=== PATIENT | female | born 1955 | race Caucasian/White ===

== ENCOUNTER 2018-06-18 09:39 | Outpatient (CLI) | payer OTHER ==
--- NOTE | 2018-06-18 12:40 | ULT ---
HEPATIC ULTRASOUND: HISTORY: Cirrhosis. TECHNIQUE: Multiplanar moore-scale and color Doppler images were obtained in a right upper quadrant abdominal ult rasound. Spectral analysis of the Doppler wave-forms of the hepatic and splenic vasculature was perf ormed. FINDINGS: The liver is increased in echogenicity with a slightly nodular contour, consistent with cirrhosis. T he gallbladder has been removed. The common bile duct is slightly enlarged, measuring 11 mm. No int rahepatic biliary dilatation is seen. Normal directional flow is seen within the hepatic and splenic vasculature, which also demonstrate no rmal wave-forms. The spleen is normal in echogenicity, without focal lesions, and measures 9.1 cm in length. IMPRESSION: 1. Findings consistent with cirrhosis. No focal liver lesions are seen. 2. Enlargement of the common bile duct is likely a reservoir effect from prior cholecystectomy. POS: [facility]
== END 2018-06-18 09:40 | disposition home or self-care (01) ==
LOC: ULT 09:39
PROVIDERS: ATTEND Internal Medicine Gastroenterology
DX: K74.3 Primary biliary cirrhosis (principal); K62.5 Hemorrhage of anus and rectum; R11.2 Nausea with vomiting, unspecified; K83.8 Other specified diseases of biliary tract; Z90.49 Acquired absence of other specified parts of digestive tract
CPT/HCPCS: 76705

== ENCOUNTER 2019-09-30 12:18 | Outpatient (CLI) | payer OTHER ==
--- NOTE | 2019-09-30 14:02 | RAD ---
SKULL FOUR VIEWS: HISTORY: The patient felt a knot in the back of his head. FINDINGS: The cranial vault is intact. The area of concern was marked with a radiopaque marker. This shows no s igns of any bony lesion or soft tissue lesion in this area. IMPRESSION: Unremarkable skull series. POS: [facility]
[2019-09-30 14:08] LABS: Mean Corpuscular HGB CONC 33.8 g/dL (32.0-36.0); Mean Corpuscular Hemoglobin 30.5 pg (27.0-31.0); Mean Corpuscular Volume 90.2 fL (78.0-98.0); Platelet Count 429 thou/uL (130-400); RBC Distribution Width 12.9 % (11.5-14.5); Red Blood Cell (RBC) Count 3.92 mill/uL (4.20-5.40); White Blood Cell (WBC) Count 14.4 thou/uL (4.8-10.8)
[2019-09-30 14:20] LABS: Anion Gap 13 mmol/L (10-20); BUN (Urea Nitrogen) 12 mg/dL (9.8-20.1); Calc. Creatinine Clearance 0 mL/min (70-130); Calcium 9.8 mg/dL (7.8-10.44); Carbon Dioxide 26 mmol/L (23-31); Chloride 103 mmol/L (98-107); Estimated GFR-MDRD 62; Glucose 86 mg/dL (80-115); Potassium 4.6 mmol/L (3.5-5.1); Sodium 137 mmol/L (136-145)
[2019-09-30 14:39] LABS: Syphilis Antibody Nonreactive (Nonreactive); Syphilis Antibody Index 0.08 S/CO (<1.00 Non-Reactive)
== END 2019-09-30 12:19 | disposition home or self-care (01) ==
LOC: SCSRAD 12:18
PROVIDERS: ATTEND Psychiatry & Neurology Neurology
DX: R51 Headache (principal)
CPT/HCPCS: 36415; 70260; 80048; 85027; 85652; 86780

== ENCOUNTER 2019-12-12 07:20 | Outpatient (CLI) | payer OTHER ==
--- NOTE | 2019-12-12 08:34 | ULT ---
HEPATIC ULTRASOUND WITH CRANDALL SCALE AND COLOR FLOW AND SPECTRAL DOPPLER IMAGING: Date: 12/12/2019 HISTORY: Cirrhosis of the liver. FINDINGS: The liver demonstrates coarse echogenicity without focal mass or intrahepatic ductal dilatation. The spleen measures 9.6 cm in length and is normal. The patient is post cholecystectomy. The common duct measures 1.0 cm in diameter and is stable compared to the previous study of 06/18/2018, likely due to reservoir effect. The visualized portions of the pancreas are unremarkable. No free fluid is seen. T here is normal flow and spectral waveforms in the hepatic, portal, and splenic vasculature. IMPRESSION: 1. Findings are consistent with hepatocellular disease. 2. Status post cholecystectomy. POS: [facility]
== END 2019-12-12 07:21 | disposition home or self-care (01) ==
LOC: BICULT 07:20
PROVIDERS: ATTEND Physician Assistant Medical
DX: K74.3 Primary biliary cirrhosis (principal); R19.7 Diarrhea, unspecified; Z90.49 Acquired absence of other specified parts of digestive tract
CPT/HCPCS: 76705

== ENCOUNTER 2019-12-25 18:23 | Inpatient (IN) | payer OTHER ==
[2019-12-25 18:59] LABS: Mean Corpuscular HGB CONC 33.1 g/dL (32.0-36.0); Mean Corpuscular Hemoglobin 29.7 pg (27.0-31.0); Mean Corpuscular Volume 89.9 fL (78.0-98.0); Mean Platelet Volume 6.5 fL (7.4-10.4); Platelet Count 547 thou/uL (130-400); RBC Distribution Width 13.1 % (11.5-14.5); Red Blood Cell (RBC) Count 3.03 mill/uL (4.20-5.40); White Blood Cell (WBC) Count 30.4 thou/uL (4.8-10.8)
[2019-12-25 19:17] LABS: ALT (SGPT) 24 U/L (8-55); AST (SGOT) 25 U/L (5-34); Albumin 3.1 g/dL (3.4-4.8); Alkaline Phosphatase 258 U/L (40-110); Anion Gap 13 mmol/L (10-20); BUN (Urea Nitrogen) 7 mg/dL (9.8-20.1); Bilirubin, Total 0.6 mg/dL (0.2-1.2); Calc. Creatinine Clearance 0 mL/min (70-130); Carbon Dioxide 24 mmol/L (23-31); Chloride 103 mmol/L (98-107); Estimated GFR-MDRD Greater than 90; Globulin 4.2 g/dL (2.4-3.5); Glucose 108 mg/dL (80-115); Protein, Total 7.3 g/dL (6.0-8.3); Sodium 136 mmol/L (136-145)
[2019-12-25 19:20] LABS: Band 24 % (5-11); Lymphocytes 6 % (21-51); MDiff Complete? YES; Monocytes 6 % (0-10); Neutrophil 64 % (42-75); Platelet Morphology Comment Appears Increased; Polychromasia MODERATE = 3-4 cells (100X) (0-2/hpf)
[2019-12-25] MEDS ORDERED: Clindamycin/D5W 900 mg/50 ml Premix Bag ONE (19:23)
[2019-12-25] MEDS ORDERED: Acetaminophen 325 MG TAB ONE (19:23)
[2019-12-25] MEDS ORDERED: Cefepime 2 GM VIAL ONE (19:23)
[2019-12-25] MEDS ORDERED: Morphine 4 MG/ML VIAL ONE (19:23)
[2019-12-25 19:24] LABS: Bacteria/HPF None Seen HPF (None Seen); Bilirubin Negative (Negative); Blood, Urine Negative (Negative); Clarity Clear (Clear); Glucose, Urine (Dipstick) Normal (Negative); Leukocyte Negative Leu/uL (Negative); Nitrite Negative (Negative); Protein, Urine (Dipstick) 30 mg/dL (Neg-Trace); Squamous Epithelial 0-3 HPF (0-3)
[2019-12-25 19:25] LABS: RBC/HPF 0-3 HPF (0-3)
[2019-12-25] MEDS ORDERED: Vancomycin 1.5 GRAM/300 ML BAG 1.5 GM in Premix Bag 1 BAG IVPB SCH (19:45)
--- NOTE | 2019-12-25 19:45 | RAD ---
PORTABLE CHEST: 12/25/19 HISTORY: Bilateral lower extremity swelling. Sepsis. Heart size within normal limits. There are atherosclerotic changes of the aorta. The lungs are clear of any infiltrative process. There is fullness in left hilum. IMPRESSION: No infiltrates, questionable fullness to left hilum. CT may be helpful. POS: [facility]
--- NOTE | 2019-12-25 21:25 | CT ---
CT PELVIS WITH CONTRAST: 12/25/19 HISTORY: Sepsis. Groin swelling. COMPARISON: CT abdomen and pelvis from 2017. FINDINGS: There is incomplete evaluation of the calcification along the anterior pole right renal collecting sy stem. The aortic contour is nonaneurysmal. Diverticular disease of the sigmoid colon. There is osseous metastatic disease involving the right sacrum at S1, S2 and even S3 with a pathologi c fracture through zone 1. There is also a mass in the soft tissue component and osseous component ri ght ilium of the SI joints. This involves both the medial and lateral cortex through the medullary ca vity. There is osseous metastasis of the left sacrum, S3, S4, and S5 with zone 3 pathologic fracture. There is a large bundle of necrotic left superficial inguinal lymph nodes of the collection measuring up to 8 cm in size. This appears to be small phlegmonous collection/hemorrhage from a lymph node sup erficial to this conglomeration of lymph nodes which in total measures 5 cm in transverse with an AP dimension of 2 cm and craniocaudal length of approximately 5.6 cm. There is abnormal right superficial inguinal lymph node at the short axis measurement of 2.1 cm. The obturator rings are intact. IMPRESSION: 1. Osseous metastatic disease with pathologic fractures as described. 2. Metastatic conglomerate of left superficial inguinal adenopathy with either hemorrhage from a partial rupture of a cortex of a lymph node versus phlegmonous collection/early abscess superficial to the lymph node mass. 3. Metastatic right superficial inguinal lymph nodes as described. 4. The ordering ER physician was notified of the findings via telephone at 8:50 p.m. POS: [facility]
[2019-12-25] MEDS ORDERED: Lorazepam 2 MG/ML VIAL ONE (22:38)
[2019-12-25] MEDS ORDERED: Lidocaine 1% w/Epinephrine 1:100K 20 ML VIAL ONE (22:44)
[2019-12-25] MEDS ORDERED: Sodium Chloride 0.9% 1,000 ML IV SCH (23:45)
[2019-12-25] MEDS ORDERED: Senokot S 8.6-50 MG TAB PO PRN (23:45)
[2019-12-25] MEDS ORDERED: Bisacodyl 5 MG TAB PO PRN (23:45)
[2019-12-26 00:26] LABS: Phosphorus 3.1 mg/dL (2.3-4.7)
[2019-12-26] MEDS ORDERED: ALPRAZolam 0.5 MG TAB PO SCH (00:45)
[2019-12-26] MEDS ORDERED: ALPRAZolam 0.25 MG TAB ONE (02:10)
[2019-12-26] MEDS ORDERED: cefTRIAXone\\ROCEPHIN 1 GM VIAL ONE (02:10)
[2019-12-26] MEDS ORDERED: Morphine 4 MG/ML VIAL ONE (02:10)
[2019-12-26] MEDS: Morphine 4 MG/ML VIAL SLOW IVP PRN ×5 (02:21→19:53)
[2019-12-26] MEDS: cefTRIAXone\\ROCEPHIN 1 GM in Sodium Chloride 0.9% 100 ML IVPB SCH (02:22)
[2019-12-26] MEDS ORDERED: Ondansetron PF 4 MG/2 ML Vial IVP PRN (06:24)
[2019-12-26] MEDS ORDERED: Ondansetron ODT 4 MG TAB PO PRN (06:25)
[2019-12-26] MEDS ORDERED: Morphine 10 MG/ML VIAL SLOW IVP PRN (06:25)
--- NOTE | 2019-12-26 06:38 | HP ---
CHIEF COMPLAINT: Left leg pain. HISTORY OF PRESENT ILLNESS: The patient is a very pleasant, unfortunate 64-year-old female, with past medical history of myasthenia gravis, who comes into the hospital with complaints of left groin pain going on for several months. The patient states that she has been having pain on her left groin area and has not been able to walk really well on her left leg. She states that she has been somehow managing, however, for the past few days. Her pain has gotten to the point that she cannot tolerate it any more, so she came into the ER for further evaluation. The patient denies any chest pain or shortness of breath. However, she has lost about 12 pounds unintentionally. She has been having night sweats for the past couple of days. PAST MEDICAL HISTORY: As of the following, she has a history of diabetes and she has a history of myasthenia gravis, hypertension, and liver cirrhosis, for which she sees Dr. Roger, chronic back pain and hip pain. PAST SURGICAL HISTORY: She has a right breast tumor biopsy, hysterectomy, and knee surgery. She has had a lymph node biopsy from her neck, which was benign. SOCIAL HISTORY: She denies any alcohol use. She smokes 5 cigarettes a day. Denies any drug use. She lives with her family. She is a full code. ALLERGIES: PENICILLIN WHEN SHE WAS 8 YEARS OLD AND LATEX GLOVE. CURRENT MEDICATIONS: She is currently on pyridostigmine. PHYSICAL EXAMINATION: VITAL SIGNS: In the ER, temperature of 100.6, pulse of 119, respiratory rate 21, oxygen saturation 99% on room air, and blood pressure 159/67. GENERAL: She is awake, alert, and oriented x3, appears in minimal distress. HEENT: I was able to palpate some nodes in her head. There were couple nodules in her head that were painful to touch. CARDIOVASCULAR: S1 and S2 present. No murmurs, rubs, or gallops. LUNGS: Clear to auscultation. No rhonchi or wheezes noted. ABDOMEN: Soft, obese. Bowel sounds are present x2. No pain upon palpation. EXTREMITIES: She does have pedal pulses present bilaterally. She does have significant lower extremity edema bilaterally and also some small blisters to her bilateral lower extremity. She also has a significant erythema to her left groin area that tracks down to around her left inner thigh. Neurovascular-mcgowan, she has good strength to her upper extremities. She has decreased strength to her left lower extremity. SKIN: As I mentioned, she has significant small blisters to bilateral lower extremity and also to her left groin. She has significant amount of erythema. LABORATORY RESULTS: As of the following; WBCs of 30.4, hemoglobin of 9.0, hematocrit of 27.3, and platelets of 547. She does have bands of 24. Chemistries; sodium of 136, potassium of 4.0, BUN of 7, and creatinine of 0.61. Her alkaline phosphatase is 258. IMAGING DATA: She did have a pelvic CT, which indicated the patient had osseous metastatic disease with pathologic fractures, metastatic conglomerate of the left superficial inguinal adenopathy either hemorrhagic or partial rupture of the cortex of the lymph node versus phlegmon. Metastatic superficial inguinal lymph nodes are also present. She also has a sacrum S1, S2, and S3 pathological fracture. ASSESSMENT AND PLAN: The patient is a 64-year-old female, who presents to the hospital with complaints of left groin pain. 1. Cellulitis of the left groin. We will start her on ceftriaxone and vancomycin. Her left groin phlegmon or necrotic lymph node was aspirated and cultures were sent. Surgery was called, however, ER went ahead and aspirated that. 2. Metastatic cancer of unknown etiology. The patient has been following up with GI for liver cirrhosis. I will check alpha-fetoprotein. I will do a CT chest, abdomen, and pelvis with contrast. I will also do a CT head. She did have an ultrasound done in November, which indicated some metastatic disease to her liver. We will also check a multiple myeloma profile. She will need a biopsy and also she has significant pathological fractures. 3. Leukocytosis, again is most likely secondary to her sepsis versus underlying newly diagnosed cancer. We will continue to monitor. 4. Deep venous thrombosis prophylaxis. We will put the patient on subcu heparin. Also, her lower extremity Dopplers were done, the result is still pending. Job ID: [id number]
[2019-12-26 06:49] LABS: #Eosinphils 0.1 thou/uL (0.0-0.7); #Lymphocytes 2.9 thou/uL (1.20-3.40); #Monocytes 1.4 thou/uL (0.11-0.59); #Neutrophils 17.9 thou/uL (1.40-6.50); %Basophils 0.2 % (0.0-1.0); %Eosinophils 0.5 % (0.0-10.0); %Lymphocytes 12.8 % (21.0-51.0); %Monocytes 6.1 % (0.0-10.0); %Neutrophils 80.4 % (42.0-75.0); Hemoglobin 8.3 g/dL (12.0-16.0); Mean Corpuscular HGB CONC 33.4 g/dL (32.0-36.0); Mean Corpuscular Hemoglobin 30.2 pg (27.0-31.0); Mean Corpuscular Volume 90.4 fL (78.0-98.0); Mean Platelet Volume 6.5 fL (7.4-10.4); Platelet Count 519 thou/uL (130-400); RBC Distribution Width 13.1 % (11.5-14.5); Red Blood Cell (RBC) Count 2.76 mill/uL (4.20-5.40); White Blood Cell (WBC) Count 22.2 thou/uL (4.8-10.8)
[2019-12-26 07:08] LABS: Anion Gap 11 mmol/L (10-20); BUN (Urea Nitrogen) 6 mg/dL (9.8-20.1); Calc. Creatinine Clearance 0 mL/min (70-130); Calcium 8.4 mg/dL (7.8-10.44); Carbon Dioxide 22 mmol/L (23-31); Chloride 107 mmol/L (98-107); Estimated GFR-MDRD Greater than 90; Glucose 116 mg/dL (80-115); Potassium 3.6 mmol/L (3.5-5.1); Sodium 136 mmol/L (136-145)
[2019-12-26 07:49] VITALS: BMI 40.6
--- NOTE | 2019-12-26 08:04 | ULT ---
ULTRASOUND DOPPLER DUPLEX VENOUS BILATERAL LOWER EXTREMITIES: DATE: 12/26/2019 HISTORY: Bilateral lower extremity edema and left lower extremity pain TECHNIQUE: Grayscale, color-flow, and spectral analysis, of major veins of bilateral lower extremities. FINDINGS: There is demonstration of blood flow with normal compressibility, of the bilateral common femoral, pr ofunda femoral, greater saphenous, femoral, popliteal, and posterior tibial, veins. IMPRESSION: Negative. No deep venous thrombosis of bilateral lower extremities.
[2019-12-26] MEDS ORDERED: Vancomycin 1 GM in Premix Bag 1 BAG IVPB SCH (09:00)
[2019-12-26] MEDS: Enoxaparin Sodium 40 MG/0.4 ML SYRINGE SC SCH (09:11)
--- NOTE | 2019-12-26 09:37 | RAD ---
RIGHT SHOULDER 3 VIEWS: HISTORY: Pain. COMPARISON: None. FINDINGS: The ribs appear to be intact. No acute displaced fracture or malalignment. Mild narrowing of the hinson bacromial space. IMPRESSION: No acute fracture or malalignment. POS: [facility]
[2019-12-26] MEDS ORDERED: Prevnar 13-Val Conj/PF 0.5 ML SYRINGE IM ONE (10:00)
[2019-12-26] MEDS ORDERED: FLU VACC QS2019-20(6MOS UP)/PF 60 MCG/0.5 ML SYRINGE IM ONE (10:00)
--- NOTE | 2019-12-26 14:25 | PDOC.EVN ---
Event Note - Event Note Event Note: Reports pain in the right shoulder with movement. Still has some pain in the left thigh area. Has had progressive pain with the erythema developing over the past week. Had some drainage of the fluid collection in the left proximal thigh area in the ER. Cultures showing many GPC. CT showed some meds to the pelvis and LN's. Left side inguinal nodes with fluid collection with possible rupture vs. abscess. On Vanc and Rocephin. CT chest, abd, pelvis pending. Patient reports Dr. Cunha saw her and said Dr. Murdock would see her tomorrow. Likely needs more aggressive drainage of the abscess and a LN biopsy for diagnosis. No obvious primary site for the metastatic lesions. Continue abx and pain meds. Follow up cultures.
[2019-12-26] MEDS: ALPRAZolam 0.5 MG TAB PO SCH (19:24)
--- NOTE | 2019-12-26 20:49 | CT ---
CT CHEST WITH IV CONTRAST CT ABDOMEN AND PELVIS WITH IV CONTRAST 12/26/19 HISTORY: Metastatic disease. Chest and abdomen pain. Bilateral lower extremity edema. FINDINGS: Compared to CT pelvis from 12/25/19. Bulky lymph nodes are present throughout the mediastinum and at each axilla, measuring up to 5.9 cm g reatest diameter at the right axilla and 4.2 cm on the left. Subcarinal adenopathy measures up to 4.4 cm x 3.3 cm. Enlarged lymph nodes are also present at each axilla and anterior and surrounding the l ower trachea. Minimal right pleural fluid and basilar atelectasis. Enlarged lymph node between the stomach and panc reas measures up to 3.5 cm. A nodule posterolateral to the left kidney measures up to 2.3 cm. It may represent a lymph node or separate metastatic focus. A large right suprarenal mass, favored to arise from the right adrenal gland shows very irregular mar gins and heterogeneous density. It measures up to 13.1 cm length x 10.3 cm width x 6.7 cm depth and displaces the superior pole of the right kidney. Destructive mass involving the left side of the sacr um measures up to 4.3 cm x 3.3 cm greatest diameters on the axial images. Nondisplaced vertically tara ented fractures involve the right side of the sacrum and the right L5 transverse process. There is partial destruction of the L3 vertebral body with compression involving primarily the inferi or end plate and loss of height by approximately 20%. No significant retropulsion. Enlarged lymph nodes at the right groin measure up to 3.8 cm. The inflamed, somewhat necrotic appeari ng lymph nodes at the left groin are similar in appearance to the previous exam. Good flow is seen wi thin the inferior vena cava and iliac veins. Extensive parenchymal scarring at the inferior pole of the right kidney with some dystrophic calcific ation. There are tiny calcifications within nondilated calyces of each kidney, measuring up to 0.3 cm greatest diameters. IMPRESSION: 1. Widespread metastatic disease involving the right adrenal cland, adenopathy of the chest, abd omen and pelvis, as detailed above. 2. Osseous metastatic disease primarily around the pelvis and lumbar spine. 3. No evidence of venous obstruction of the lower extremities. 4. Tiny nonobstructing bilateral renal calculi. POS: [facility]
[2019-12-26] MEDS: Melatonin 3 MG TAB PO PRN (21:23)
[2019-12-26] MEDS: Ketorolac Tromethamine 30 MG/ML VIAL IVP PRN (21:23)
[2019-12-27] MEDS: cefTRIAXone\\ROCEPHIN 1 GM in Sodium Chloride 0.9% 100 ML IVPB SCH (00:05)
[2019-12-27] MEDS: Ketorolac Tromethamine 30 MG/ML VIAL IVP PRN ×3 (03:24→20:28)
[2019-12-27] MEDS: Morphine 4 MG/ML VIAL SLOW IVP PRN ×5 (04:52→22:42)
[2019-12-27] MEDS: Enoxaparin Sodium 40 MG/0.4 ML SYRINGE SC SCH (07:21)
[2019-12-27] MEDS ORDERED: Fentanyl 100 MCG/2 ML VIAL ONE ×2 (07:43→09:47)
[2019-12-27] MEDS ORDERED: HYDROmorphone 0.5 MG/0.5 ML SYRINGE ONE (07:43)
[2019-12-27] MEDS ORDERED: Bupivacaine PF 0.5% 30 ML VIAL ONE (07:47)
[2019-12-27] MEDS ORDERED: Lidocaine 1% w/Epinephrine 1:100K 20 ML VIAL ONE (07:47)
[2019-12-27 07:56] LABS: Vancomycin, Trough 15.1 ug/mL
--- NOTE | 2019-12-27 08:50 | CON ---
DATE OF CONSULTATION: 12/26/2019 HISTORY OF PRESENT ILLNESS: Kelsie Narvaez is a 64-year-old female, admitted to the hospitalist service. The patient has suffered a 10- to 15-pound weight loss unintentionally over the last few weeks. She has developed pain in her groin in the last several days. She states she was in an outlying hospital, seen for this and discharged. She is morbidly obese, 5 feet 2 inches, 40 BMI, 222 pounds. She states she quit smoking yesterday, smoked about half a pack or more prior to that. The patient was seen in the emergency room and a left groin mass appreciated. It was red and indurated and had purulent discharge. A pelvic CAT scan was obtained at 7:22 a.m., read, revealing changes of osseous metastatic disease involving the right sacrum, S1 to an S3, pathologic fracture through zone 1, mass and soft tissue component, osseous component of the right ilium, SI joints, both medial and lateral cortex, the medullary cavity. There is left sacral mets, S3, S4, and S5. Large bundle necrotic nodes, superficial left groin, an 8 cm collection of pus and phlegmon. There are abnormal right superficial inguinal lymph nodes, obturator rings in the past. Chest x-ray is unremarkable. ALLERGIES: LATEX AND PENICILLINS. PAST SURGICAL HISTORY: 1. Transvaginal hysterectomy. 2. Cholecystectomy. 3. She had a colonoscopy 1 or 2 years ago. 4. She has had a left total knee replacement. She states she probably needs a right total knee replacement. 5. Right tumor biopsy. SOCIAL HISTORY: She lives with her relative. MEDICATIONS: At home, none listed. Started on vancomycin in the hospital. PAST MEDICAL HISTORY: The patient has: 1. Diabetes. 2. Hypertension. 3. History of myasthenia gravis. 4. Liver cirrhosis, followed by Dr. Roger. 5. Chronic back and hip pain. PHYSICAL EXAMINATION: GENERAL: Morbidly obese, in no distress. VITAL SIGNS: Height 5 feet 2 inches, 222 pounds, 40 BMI, temperature 98.7, 110 heart rate, and blood pressure 131/61. LUNGS: Clear to auscultation. CARDIAC: Regular rhythm without murmur or gallop. ABDOMEN: Soft, obese. Large left groin abscess, red and indurated. She has large area of induration. She has area of ecchymosis and blistering on the lateral aspect of this and area of induration and redness. There was a 1 to 1.5 cm opening with Nu Gauze quarter-inch packed in. EXTREMITIES: Unremarkable otherwise. LABORATORY DATA: White count 30,000 on admission and 22,000 this morning, hemoglobin 8.3. Basic metabolic profile normal. Platelet count 519,000. Coags not obtained. Last coags obtained in 2011 were normal. ASSESSMENT AND PLAN: 1. Left groin abscess, probably inadequately drained in the emergency room. Since they have fed her this morning, surgery cannot be performed. We will ask Dr. Murdock to see her tomorrow. She is on vancomycin, perhaps we can drain this in the operating room tomorrow. 2. Lymphadenopathies, suspicious for malignancy. 3. Osseous metastasis. 4. Diabetes mellitus. 5. Hypertension. 6. Morbid obesity. 7. Tobacco abuse. 8. History of cirrhosis, followed by Dr. Roger. Job ID: [id number]
[2019-12-27] MEDS ORDERED: PACU-Morphine 4MG/ML VIAL SLOW IVP PRN (09:11)
[2019-12-27] MEDS ORDERED: Promethazine HCl 25 MG/ML VIAL IM PRN (09:11)
[2019-12-27] MEDS ORDERED: HYDROmorphone 2 MG/ML VIAL SLOW IVP PRN (09:11)
[2019-12-27] MEDS ORDERED: Promethazine HCl 25 MG/ML VIAL SLOW IVP PRN (09:11)
[2019-12-27] MEDS ORDERED: Ondansetron HCl/PF 4 MG/2 ML Vial IVP PRN (09:11)
[2019-12-27] MEDS ORDERED: Morphine 4 MG/ML VIAL ONE (09:28)
[2019-12-27] MEDS ORDERED: PHENYLEPHRINE-NS 100 MCG/ML 10 ML SYRINGE ONE (10:29)
[2019-12-27] MEDS ORDERED: EPHEDRINE 25 MG/5 ML SYRINGE ONE (10:29)
[2019-12-27] MEDS ORDERED: PROPOFOL 200 MG/20 ML VIAL ONE (10:29)
[2019-12-27] MEDS ORDERED: Lidocaine 1% PF 5 ML VIAL ONE (10:29)
[2019-12-27] MEDS ORDERED: Ondansetron PF 4 MG/2 ML Vial ONE (10:29)
--- NOTE | 2019-12-27 10:31 | OP ---
DATE OF PROCEDURE: 12/27/2019 PREOPERATIVE DIAGNOSES: Left groin abscess and right inguinal lymphadenopathy. POSTOPERATIVE DIAGNOSES: Left groin abscess and right inguinal lymphadenopathy. INDICATIONS FOR PROCEDURE: The patient is a 64-year-old morbidly obese white female who presented with progressive pelvic and hip pain. In the hospital, she had imaging studies performed revealing evidence of widespread metastatic disease involving the right adrenal gland, adenopathy of the chest, abdomen, pelvis with osseous metastatic disease involving the pelvis and lumbar spine. She was also recognized to have a left groin abscess. This had been minimally drained in the emergency room with a tiny little incision off to the side but she has necrotic skin overlying most of the abscess. Although she has large lymph nodes underlying the abscess in the left groin, she also has right inguinal lymphadenopathy and for diagnostic purposes have been requested to perform a lymph node excisional biopsy. DESCRIPTION OF OPERATION: Informed consent was obtained. The patient was taken to the operating room where general anesthesia obtained with patient in the supine position. Bilateral groins are prepped with Betadine, draped in sterile fashion. Attention turned first to the right groin where the left groin was still left covered. Local anesthetic was infiltrated and transverse incision was created over palpable right groin lymph node. Dissection carried through skin, subcutaneous tissue down to the lymph node. This was dissected circumferentially, dividing all investing lymphatics between clamps and 2-0 silk ties. The lymph node was enlarged and firm consistent with malignant lymph node. It was passed off the field and submitted for lymph node protocol as a fresh specimen. Meticulous hemostasis was obtained within the wound. It was closed in layers with 3-0 Vicryl. Skin edges approximated with 4-0 Monocryl. Dermabond placed externally. Attention turned to left groin. The necrotic area overlying the abscess was excised. Underlying this was soupy necrotic material which was also excised. This incision was contiguous then with the lateral incision previously made. There was also found to be an undermined area extending superiorly and laterally. The skin over this was removed as well. When all tracts have been opened, the wound was debrided with gauze as well as sharp debridement with a scalpel. It was scrubbed with peroxide and packed with peroxide moistened gauze and dry gauze dress was placed externally. The underlying lymph nodes were visualized but not biopsied or incised. The patient tolerated the procedure well. There was essentially no blood loss. She was taken to recovery room in stable condition. Job ID: [id number]
--- NOTE | 2019-12-27 15:40 | EKG ---
Test Reason : Blood Pressure : / mmHG Vent. Rate : 122 BPM Atrial Rate : 122 BPM P-R Int : 098 ms QRS Dur : 072 ms QT Int : 314 ms P-R-T Axes : 045 030 089 degrees QTc Int : 447 ms Sinus tachycardia with short AL Nonspecific T wave abnormality Abnormal ECG Confirmed by LILI PARKS M.D. ([id number]), editor news LIBRA MAHMOOD ([id number]) on 12/27/2019 3:39:58 PM Referred By: Confirmed By:LILI PARKS M.D.
[2019-12-27 16:38] LABS: Kappa Lambda Light Chain Ratio 1.87 (0.26-1.65); Kappa Light Chains 60.8 mg/L (3.3-19.4); Lambda Light Chain 32.5 mg/L (5.7-26.3)
[2019-12-27] MEDS: HumaLOG 300 UNITS/3 ML VIAL SC PRN (18:46)
[2019-12-27] MEDS: ALPRAZolam 0.5 MG TAB PO SCH (20:28)
[2019-12-27] MEDS: Acetaminophen 325 MG TAB PO PRN (20:29)
[2019-12-27] MEDS: Melatonin 3 MG TAB PO PRN (22:44)
--- NOTE | 2019-12-27 23:19 | PDOC.HOSPP ---
- Subjective Encounter Date: 12/27/19 Encounter Time: 09:00 Subjective: no overnight events. This morning, lying comfortably in bed and endorses being in distress due to recent medical issues on findings during this hospitalization. Complains of left groin swelling and tenderness. Otherwise no complaints. - Objective Vital Signs & Weight: Vital Signs (12 hours) Temp Pulse Resp BP Pulse Ox 12/27/19 19:47 100.0 F H 100 20 148/65 H 97 12/27/19 15:23 98.3 F 101 H 20 140/68 95 12/27/19 13:31 98.1 F 100 18 164/76 H 93 L Weight Admit Weight 222 lb 6.4 oz Weight 222 lb 6.4 oz I&O: 12/26/19 12/27/19 12/28/19 06:59 06:59 06:59 Intake Total 3135 3435 Output Total 1550 1150 Balance 1585 2285 Result Diagrams: 12/26/19 06:25 12/26/19 06:25 Additional Labs: Accuchecks 12/27/19 12/27/19 12/27/19 20:57 16:45 11:40 POC Glucose 276 H 217 H 149 H 12/27/19 05:35 POC Glucose 110 Hospitalist ROS - Review of Systems Constitutional: denies: fever, chills, sweats, weakness, malaise, other Respiratory: denies: cough, dry, shortness of breath, hemoptysis, SOB with excertion, pleuritic pain, sputum, wheezing, other Cardiovascular: denies: chest pain, palpitations, orthopnea, paroxysmal noc. dyspnea, edema, light headedness, other Gastrointestinal: denies: nausea, vomiting, abdominal pain, diarrhea, constipation, melena, hematochezia, other Genitourinary: denies: dysuria, frequency, incontinence, hematuria, retention, other Skin: reports: lesions (left inguinal lesion) - Medication Medications: Active Medications Generic Name Dose Route Start Last Admin Trade Name Freq PRN Reason Stop Dose Admin Acetaminophen 650 mg 12/25/19 23:45 12/27/19 20:29 Tylenol PO 650 mg Q4H PRN Administration Headache/Fever/Mild Pain (1-3) Alprazolam 0.5 mg 12/26/19 21:00 03/14/20 20:28 Xanax PO 0.5 mg HS NILSON Administration Enoxaparin Sodium 40 mg 12/26/19 09:00 12/27/19 07:21 Lovenox SC Not Given 0900 [facility] Ceftriaxone Sodium 1 gm/ 100 mls @ 200 mls/hr 12/26/19 01:00 12/27/19 00:05 Sodium Chloride IVPB 100 mls 0100 NILSON Administration Vancomycin HCl 2 gm/ Sodium 500 mls @ 250 mls/hr 12/27/19 13:00 12/27/19 13: 41 Chloride IVPB 500 mls 0100,1300 NILSON Administration Insulin Human Lispro 0 units 12/27/19 17:46 12/27/19 18:46 Humalog SC 3 units .MILD SLIDING SCALE PRN Administration Mild Correctional Scale Ketorolac Tromethamine 15 mg 12/26/19 20:57 12/27/19 20:28 Toradol IVP 12/31/19 20:58 15 mg Q6H PRN Administration Pain Melatonin 3 mg 12/26/19 20:55 12/27/19 22:44 Melatonin PO 3 mg HS PRN Administration Insomnia Morphine Sulfate 6 mg 12/26/19 15:21 12/27/19 22:42 Morphine SLOW IVP 6 mg Q4H PRN Administration Moderate to Severe Pain (6-10) Sodium Chloride 10 ml 12/26/19 09:00 12/27/19 20:29 Flush - Normal Saline IVF 10 ml Q12HR NILSON Administration - Exam General Appearance: awake alert General - other findings: morbidly obese, appears mildy anxious Eye: PERRL, anicteric sclera ENT - other findings: left periauricular nonmobile nontender lymphadenopathy Neck: no JVD Heart - other findings: regular rhythm, tachycardic Respiratory: CTAB, no wheezes, no rales, no ronchi Gastrointestinal: soft, non-tender, non-distended, normal bowel sounds Extremities: 1+ LE edema Skin - other findings: left inguinal swelling with clean overlying dressing Neurological: cranial nerve grossly intact Musculoskeletal: normal tone, normal strength Psychiatric: normal behavior, A&O x 3 Hosp A/P - Plan #MRSA bacteremia #left inguinal abscess -echo negative for vegetation; however body habitus may be limiting sensitivity ; if blood cultures persistently positive/recurrent fevers will consider PAIGE -pending I&D by surgery -continue vanc, ceftriaxone (d2) -repeat blood culture #diffuse metastatic disease -imaging showing "Widespread metastatic disease involving the right adrenal cland, adenopathy of the chest, abdomen and pelvis... Osseous metastatic disease primarily around the pelvis and lumbar spine. -patient endorses having "breast tumor" in the distant past, excised and follow up mammograms negative -also had hyperplastic colonic polyp (2017) -Family history significant for grandmother with bilateral breast cancer diagnosed at around age 70 -consult oncology otherwise, management unchanged
[2019-12-27] MEDS ORDERED: HumaLOG 300 UNITS/3 ML VIAL SC PRN (23:43)
[2019-12-28] MEDS: cefTRIAXone\\ROCEPHIN 1 GM in Sodium Chloride 0.9% 100 ML IVPB SCH (00:34)
[2019-12-28] MEDS: Ketorolac Tromethamine 30 MG/ML VIAL IVP PRN ×4 (02:27→22:13)
[2019-12-28] MEDS: Morphine 4 MG/ML VIAL SLOW IVP PRN ×6 (02:28→23:08)
[2019-12-28 05:06] LABS: Mean Corpuscular HGB CONC 32.3 g/dL (32.0-36.0); Mean Corpuscular Hemoglobin 29.3 pg (27.0-31.0); Mean Corpuscular Volume 90.5 fL (78.0-98.0); Mean Platelet Volume 6.6 fL (7.4-10.4); Platelet Count 509 thou/uL (130-400); RBC Distribution Width 13.2 % (11.5-14.5); Red Blood Cell (RBC) Count 2.74 mill/uL (4.20-5.40); White Blood Cell (WBC) Count 13.1 thou/uL (4.8-10.8)
[2019-12-28] MEDS: Enoxaparin Sodium 40 MG/0.4 ML SYRINGE SC SCH (09:25)
[2019-12-28] MEDS ORDERED: oxyCODONE ER 10 MG TAB PO PRN (10:20)
[2019-12-28] MEDS ORDERED: Pyridostigmine Bromide 180 MG SRTAB PO SCH (10:30)
[2019-12-28] MEDS: HumaLOG 300 UNITS/3 ML VIAL SC PRN ×2 (11:54→16:35)
--- NOTE | 2019-12-28 13:10 | CON ---
DATE OF CONSULTATION: 12/28/2019 REASON FOR CONSULTATION: Metastatic malignancy. HISTORY OF PRESENT ILLNESS: The patient is a 64-year-old woman who has a 1 to 2 year history of some back and left hip pain, which has been treated conservatively. More recently, she developed left groin swelling and pain over 2 to 3 weeks, prompting emergency room visit, which demonstrated a probable infection in the left inguinal area. She has had no definite fever. She has had some pustular lesions over the left lower extremity and arm off and on for several months. She has had sweats including night sweats, but this seems to be a chronic process over 1-2 years. She has not lost significant weight. On admission, a number of studies were performed including a CT scan of the chest, abdomen, and pelvis, which showed bulky lymphadenopathy throughout the mediastinum and axillae bilaterally with lymph nodes measuring up to 5.9 cm in maximum dimension. There was a large right suprarenal mass favored to arise from the right adrenal gland measuring 13.1 cm in maximum dimension. It displaces the superior pole of the right kidney. A destructive mass was seen involving the left side of the sacrum measuring 4.3 x 3.3 cm. There is destruction of the L3 vertebral body as well. There were bilaterally enlarged groin nodes with the right lymph node measuring up to 3.8 cm. There were inflamed and necrotic lymph nodes in the left groin consistent with infection diagnosed clinically. Yesterday, she was taken to the operating room by Dr. Damir Murdock, and underwent a right groin lymph node biopsy, and I and D of the left groin abscess/necrotic adenopathy. Methicillin-resistant Staph aureus is growing from the left groin. There is no growth from blood or urine. Biopsy of the right groin lymph node result is pending. I am asked to see the patient at this time to provide further management recommendations regarding the patient's widespread malignancy. PAST MEDICAL HISTORY: ALLERGIES: SHE DESCRIBES SENSITIVITY TO PENICILLIN, BUT THIS WAS WHEN SHE WAS 8 YEARS OLD AND DETAILS ARE OBSCURE. MEDICATIONS: 1. Xanax. 2. Tylenol. 3. Prophylactic Lovenox. 4. Hydrochlorothiazide. 5. Melatonin. 6. Vancomycin. MEDICAL ILLNESS: There is a history of myasthenia gravis, details unavailable. There is a history of diabetes mellitus and hypertension. She carries a diagnosis of hepatic cirrhosis, likely secondary to fatty liver for which she is seen by Dr. Roger. There is a history of excision of a breast mass at age 19, likely benign, and not relevant to the current process. A lymph node biopsy from her left neck was performed over 20 years ago, also likely not relevant. SOCIAL HISTORY: She does not use alcohol. She smokes less than half a pack per day. She does not use illicit drugs. She lives with her family in [place]. Multiple children are present during the evaluation today. REVIEW OF SYSTEMS: Except as mentioned in the history of present illness, she denies significant cardiopulmonary, GI, , musculoskeletal, or neurological complaints. PHYSICAL EXAMINATION: VITAL SIGNS: Temperature 97.9, pulse 89 and regular, respirations 20, blood pressure 157/70. GENERAL: The patient is a well-developed, well-nourished woman, in no acute distress. Alert, oriented, cooperative. HEENT: The extraocular movements are intact and the pupils are equal, round, reactive to light. NECK: Supple. LUNGS: Clear. CARDIOVASCULAR: Regular rate and rhythm without murmur, rub, gallop, or click. ABDOMEN: No tenderness, organomegaly, masses, bruits, or ascites. EXTREMITIES: There is trace edema in the lower extremities bilaterally without clubbing or cyanosis. SKIN: There are a few pustular and excoriated areas over the skin in the left lower extremity and right arm. LYMPH: There are enlarged lymph nodes in the anterior cervical chain bilaterally measuring up to 3-4 cm. There are bilateral large lymph nodes in each axilla also measuring up to 4-5 cm. NEUROLOGIC: No focal findings and the cranial nerves 2 through 12 are grossly intact. LABORATORY DATA: White blood cell count 13.1 with a left shift, hemoglobin is 8.0, and platelet count 509,000. MCV is 90.5. Sodium 136, potassium 3.6, chloride 107, carbon dioxide 22, creatinine is 0.58, and BUN 6. A random blood sugar is 116. The calcium is 9.0 and albumin of 3.1 on admission. The alkaline phosphatase is 258 with otherwise normal liver function studies. The globulin level is slightly elevated and an SPEP is pending. The LDH is elevated at 360. The alpha fetoprotein is normal at 4.0. IMAGING: See history of present illness. IMPRESSION: Widespread metastatic malignancy of unclear source. RECOMMENDATIONS: I would await the results of the right lymph node biopsy for definitive diagnosis. It would be acceptable to me for her to be discharged if her condition allows and the infection treated as an outpatient if appropriate. I will follow her up in the office when final pathology is available. Thanks very much for allowing me to provide more recommendations. Job ID: [id number]
--- NOTE | 2019-12-28 15:23 | PDOC.HOSPP ---
- Subjective Encounter Date: 12/28/19 Encounter Time: 08:00 Subjective: No overnight events. This morning, endorses being anxious regarding findings and requests that Ativan be provided at night to help her sleep. Discussed the current findings and workup with the patient and explained that we are waiting for pathology results as well as other studies but that there is the possibility of it being a malignancy. Pending evaluation by oncology - Objective Vital Signs & Weight: Vital Signs (12 hours) Temp Pulse Resp BP Pulse Ox 12/28/19 11:57 98.5 F 98 20 148/68 H 97 12/28/19 08:00 97.9 F 89 20 157/70 H 97 12/28/19 05:04 98.1 F 92 14 159/69 H 97 Weight Admit Weight 222 lb 6.4 oz Weight 222 lb 6.4 oz I&O: 12/27/19 12/28/19 12/29/19 06:59 06:59 06:59 Intake Total 3135 3435 Output Total 1550 1150 Balance 1585 2285 Result Diagrams: 12/28/19 04:52 12/26/19 06:25 Additional Labs: Accuchecks 12/28/19 12/28/19 12/27/19 11:03 05:47 20:57 POC Glucose 197 H 191 H 276 H 12/27/19 16:45 POC Glucose 217 H Hospitalist ROS - Review of Systems Constitutional: denies: fever, chills, sweats, weakness, malaise, other Respiratory: denies: cough, dry, shortness of breath, hemoptysis, SOB with excertion, pleuritic pain, sputum, wheezing, other Cardiovascular: denies: chest pain, palpitations, orthopnea, paroxysmal noc. dyspnea, edema, light headedness, other Gastrointestinal: denies: nausea, vomiting, abdominal pain, diarrhea, constipation, melena, hematochezia, other - Medication Medications: Active Medications Generic Name Dose Route Start Last Admin Trade Name Freq PRN Reason Stop Dose Admin Acetaminophen 650 mg 12/25/19 23:45 12/27/19 20:29 Tylenol PO 650 mg Q4H PRN Administration Headache/Fever/Mild Pain (1-3) Alprazolam 0.5 mg 12/26/19 21:00 12/27/19 20:28 Xanax PO 0.5 mg HS NILSON Administration Enoxaparin Sodium 40 mg 12/26/19 09:00 12/28/19 09:25 Lovenox SC 40 mg 0900 NILSON Administration Vancomycin HCl 2 gm/ Sodium 500 mls @ 250 mls/hr 12/27/19 13:00 12/28/19 13: 59 Chloride IVPB 500 mls 0100,1300 NILSON Administration Insulin Human Lispro 0 units 12/27/19 17:46 12/28/19 11:54 Humalog SC 2 units .MILD SLIDING SCALE PRN Administration Mild Correctional Scale Ketorolac Tromethamine 15 mg 12/26/19 20:57 12/28/19 09:26 Toradol IVP 12/31/19 20:58 15 mg Q6H PRN Administration Pain Melatonin 3 mg 12/26/19 20:55 12/27/19 22:44 Melatonin PO 3 mg HS PRN Administration Insomnia Morphine Sulfate 6 mg 12/26/19 15:21 12/28/19 11:04 Morphine SLOW IVP 6 mg Q4H PRN Administration Moderate to Severe Pain (6-10) Sodium Chloride 10 ml 12/26/19 09:00 12/28/19 09:26 Flush - Normal Saline IVF 10 ml Q12HR NILSON Administration - Exam General Appearance: NAD, awake alert Heart: RRR, no murmur, no gallops Respiratory: CTAB, no wheezes, no rales, no ronchi Gastrointestinal: soft, non-tender, non-distended, normal bowel sounds, no palpable masses, no hepatomegaly, no splenomegaly, no bruit Extremities: 2+ LE edema Extremities - other findings: b/l pitting to knee level Psychiatric: normal behavior, A&O x 3 Hosp A/P - Plan #MRSA left inguinal abscess -echo negative for vegetation -I&D by sugery; took biopsy of lymph node -wound appears clean and noninfected (appreciated EMR pictures) -continue vanc(d3); stop ceftriaxone -repeat blood culture #diffuse metastatic disease -imaging showing "Widespread metastatic disease involving the right adrenal cland, adenopathy of the chest, abdomen and pelvis... Osseous metastatic disease primarily around the pelvis and lumbar spine. -patient endorses having "breast tumor" in the distant past, excised and follow up mammograms negative -also had hyperplastic colonic polyp (2017) -Family history significant for grandmother with bilateral breast cancer diagnosed at around age 70 -presentation and labs somewhat c/w multiple myeloma; biopsy taken by surgery pending pathology; defer to oncology otherwise, management unchanged
--- NOTE | 2019-12-28 17:00 | PRG ---
DATE OF SERVICE: 12/28/2019 SUBJECTIVE: Ms. Narvaez is postoperative day #1 following incision and drainage of a large left groin abscess, excision of large malignant right inguinal lymph node. Today, she seems to be in good spirits. She has already had her dressing changed in her left groin by Wound Care Team. Dressing is intact in this location. She notes minimal discomfort of her right inguinal incision. OBJECTIVE: On examination, she is afebrile. Pulse 97, blood pressure 158/71. The left groin is not examined as the dressing is intact. The right groin shows incision to be appropriately healed with Dermabond intact. This is somewhat concerning area for an incision as she is morbidly obese and this area is subject to maceration and potential conversion into a wound infection. Probably consider placing a gauze dressing over the incision to minimize maceration. ASSESSMENT: The patient seems to be doing well following surgery that performed yesterday. She is tolerating it well. She will continue to require ongoing wound care. She is of course ready for discharge from a surgical standpoint at any time. I would typically like to see her back in 10 to 14 days, so I can follow up on the left groin if she is discharged soon. Of note, although the pathology is not final, initial evaluation of the right inguinal lymph node by pathology indicated this is a carcinoma and not a lymphoma. Job ID: [id number]
[2019-12-28] MEDS: Melatonin 3 MG TAB PO PRN (21:20)
[2019-12-28] MEDS: Acetaminophen 325 MG TAB PO PRN (21:20)
[2019-12-28] MEDS: ALPRAZolam 0.5 MG TAB PO SCH (21:21)
[2019-12-28] MEDS: Pyridostigmine Bromide 180 MG SRTAB PO SCH (23:08)
[2019-12-29] MEDS: Morphine 4 MG/ML VIAL SLOW IVP PRN ×3 (03:16→11:51)
[2019-12-29] MEDS: Ketorolac Tromethamine 30 MG/ML VIAL IVP PRN ×3 (04:35→20:15)
[2019-12-29 05:09] LABS: Anion Gap 9 mmol/L (10-20); BUN (Urea Nitrogen) 11 mg/dL (9.8-20.1); Calc. Creatinine Clearance 147 mL/min (70-130); Calcium 8.2 mg/dL (7.8-10.44); Carbon Dioxide 26 mmol/L (23-31); Chloride 107 mmol/L (98-107); Estimated GFR-MDRD Greater than 90; Glucose 107 mg/dL (80-115); Magnesium 1.9 mg/dL (1.6-2.6); Sodium 138 mmol/L (136-145)
[2019-12-29] MEDS: Pyridostigmine Bromide 180 MG SRTAB PO SCH ×2 (07:16→20:15)
[2019-12-29] MEDS: Amlodipine 10 MG TAB PO SCH (07:17)
[2019-12-29] MEDS: Enoxaparin Sodium 40 MG/0.4 ML SYRINGE SC SCH (07:19)
[2019-12-29] MEDS ORDERED: Hydrochlorothiazide 25 MG TAB PO SCH (09:00)
[2019-12-29] MEDS: hydrALAZINE 25 MG TAB PO SCH ×3 (10:38→20:13)
[2019-12-29] MEDS: Chlorthalidone 25 MG TAB PO SCH (10:38)
[2019-12-29] MEDS ORDERED: ALPRAZolam 0.5 MG TAB PO SCH (13:00)
--- NOTE | 2019-12-29 13:20 | PRG ---
DATE OF SERVICE: 12/29/2019 Ms. Narvaez is postoperative day number 2 from an incision and drainage of left groin abscess and excisional biopsy of right groin lymph node. She has no complaints. Dressings already been changed this morning by wound care team in her left groin. She believes that she has been cleared for discharge home. She has no complaints regards to either side of surgery. PHYSICAL EXAMINATION: VITAL SIGNS: She is afebrile. Pulse is between 88 and 100, blood pressure 143/67. : Examination of the 2 surgical site shows that the gauze dressing is intact in the left groin. The incision is healing appropriately with Dermabond intact in the right groin. Dry gauze dress would be placed over the incision in the right groin to prevent maceration from her pannus folding down on her leg. ASSESSMENT: She is doing well following this surgery. She is certainly stable for discharge at anytime. I would usually like to see her back about a week after her discharge, so I can check on the healing of the left groin abscess. I again spoke with the patient about keeping the right groin incision dry with a clean piece of gauze to prevent wound maceration. Job ID: [id number]
[2019-12-29 15:37] LABS: A/G Ratio 0.7 (0.7-1.7); Albumin 2.5 g/dL (2.9-4.4); Alpha 1 0.3 g/dL (0.0-0.4); Alpha 2 0.8 g/dL (0.4-1.0); Beta 1.1 g/dL (0.7-1.3); Gamma 1.5 g/dL (0.4-1.8); Globulin, Total 3.7 g/dL (2.2-3.9); M-Spike 0.1 g/dL (Not Observed)
[2019-12-29] MEDS ORDERED: oxyCODONE 5 MG TAB PO SCH (16:04)
[2019-12-29] MEDS: HumaLOG 300 UNITS/3 ML VIAL SC PRN (17:57)
[2019-12-29 18:35] LABS: Hemoglobin 8.6 g/dL (12.0-16.0)
[2019-12-29] MEDS ORDERED: OxyCODONE IR 30 MG TAB PO PRN (19:50)
[2019-12-29] MEDS: ALPRAZolam 0.5 MG TAB PO PRN (20:15)
[2019-12-29] MEDS: oxyCODONE 5 MG TAB PO PRN (20:24)
[2019-12-29] MEDS ORDERED: ALPRAZolam 1 MG TAB PO SCH (21:00)
--- NOTE | 2019-12-29 21:29 | PDOC.HOSPP ---
- Subjective Encounter Date: 12/29/19 Encounter Time: 10:00 Subjective: no overnight events. This morning, appears in distress, anxious, tearful regarding diagnosis of cancer. complains about pain mostly after repacking wound. Otherwise no complaints. - Objective Vital Signs & Weight: Vital Signs (12 hours) Temp Pulse Resp BP Pulse Ox 12/29/19 20:13 102 H 12/29/19 20:10 98.9 F 99 20 148/78 H 96 12/29/19 15:54 98.4 F 102 H 22 H 152/81 H 97 12/29/19 11:58 98.6 F 102 H 22 H 143/67 H 97 Weight Admit Weight 222 lb 6.4 oz Weight 222 lb 6.4 oz I&O: 12/28/19 12/29/19 12/30/19 06:59 06:59 06:59 Intake Total 3435 1700 1200 Output Total 1150 1520 1400 Balance 2285 180 -200 Result Diagrams: 12/29/19 18:28 12/29/19 04:03 Additional Labs: Accuchecks 12/29/19 12/29/19 12/29/19 20:34 17:52 05:48 POC Glucose 152 H 192 H 116 H Hospitalist ROS - Review of Systems Constitutional: reports: sweats. denies: fever, chills, weakness, malaise, other Respiratory: denies: cough, dry, shortness of breath, hemoptysis, SOB with excertion, pleuritic pain, sputum, wheezing, other Cardiovascular: denies: chest pain, palpitations, orthopnea, paroxysmal noc. dyspnea, edema, light headedness, other Gastrointestinal: denies: nausea, vomiting, abdominal pain, diarrhea, constipation, melena, hematochezia, other Genitourinary: denies: dysuria, frequency, incontinence, hematuria, retention, other Skin: reports: lesions - Medication Medications: Active Medications Generic Name Dose Route Start Last Admin Trade Name Freq PRN Reason Stop Dose Admin Acetaminophen 650 mg 12/25/19 23:45 12/28/19 21:20 Tylenol PO 650 mg Q4H PRN Administration Headache/Fever/Mild Pain (1-3) Alprazolam 0.5 mg 12/29/19 19:51 12/29/19 20:15 Xanax PO 0.5 mg TIDPRN PRN Administration Anxiety/Insomnia Amlodipine Besylate 10 mg 12/29/19 09:00 12/29/19 07:17 Norvasc PO 10 mg DAILY [facility] Administration Chlorthalidone 12.5 mg 12/29/19 09:00 12/29/19 10:38 [place] PO 12.5 mg DAILY NILSON Administration Enoxaparin Sodium 40 mg 12/26/19 09:00 12/29/19 07:19 Lovenox SC 40 mg 0900 [facility] Administration Hydralazine HCl 25 mg 12/29/19 09:00 12/29/19 20:13 Apresoline PO 25 mg TID [facility] Administration Insulin Human Lispro 0 units 12/27/19 17:46 12/29/19 17:57 Humalog SC 2 units .MILD SLIDING SCALE PRN Administration Mild Correctional Scale Ketorolac Tromethamine 15 mg 12/26/19 20:57 12/29/19 20:15 Toradol IVP 12/31/19 20:58 15 mg Q6H PRN Administration Pain Morphine Sulfate 6 mg 12/26/19 15:21 12/29/19 11:51 Morphine SLOW IVP 6 mg Q4H PRN Administration Moderate to Severe Pain (6-10) Oxycodone HCl 15 mg 12/29/19 20:13 12/29/19 20:24 Oxycodone Ir PO 15 mg Q6H PRN Administration Severe Pain (7-10) Pyridostigmine [place] 180 mg 12/28/19 21:00 12/29/19 20:15 Mestinon Sr PO 180 mg BID NILSON Administration Sodium Chloride 10 ml 12/26/19 09:00 12/29/19 20:15 Flush - Normal Saline IVF 10 ml Q12HR NILSON Administration - Exam General Appearance: awake alert General - other findings: anxious, tearful Heart: no murmur, no gallops, no rubs, normal peripheral pulses Heart - other findings: regular rhythm, tachycardic Respiratory: CTAB, no wheezes, no rales, no ronchi, normal chest expansion, no tachypnea, normal percussion Gastrointestinal: soft, non-tender, non-distended, normal bowel sounds, no palpable masses, no hepatomegaly, no splenomegaly, no bruit Extremities: 2+ LE edema Skin - other findings: left inguinal abscess packed, clean overlying dressing Psychiatric: normal behavior, A&O x 3 Hosp A/P - Plan #MRSA left inguinal abscess -echo negative for vegetation -I&D by doug; took biopsy of lymph node -wound appears clean and noninfected (appreciated EMR pictures) -stop vanc (d4), start bactrim DS PO bid for total of 14 days -will follow up with surgery as outpatient -transition to pain medication pending dishcarge oxycodone -will receive wound care at home even though family explained how to change packing and manage wound #diffuse metastatic cancer -biopsy initial report c/w carcinoma -patient in significant distress; requested additional anti anxiety medications -increased xanax to 0.5MG TID PRN anxiety -ensured patient she will be followed closely by PCP and oncology upon discharge -will receive home health Anticipated discharge 12/29
[2019-12-30] MEDS: oxyCODONE 5 MG TAB PO PRN ×2 (01:32→08:18)
[2019-12-30] MEDS: Ketorolac Tromethamine 30 MG/ML VIAL IVP PRN (01:33)
[2019-12-30 04:55] LABS: Hemoglobin 8.4 g/dL (12.0-16.0)
[2019-12-30 05:09] LABS: Anion Gap 11 mmol/L (10-20); BUN (Urea Nitrogen) 10 mg/dL (9.8-20.1); Calc. Creatinine Clearance 145 mL/min (70-130); Calcium 8.7 mg/dL (7.8-10.44); Carbon Dioxide 29 mmol/L (23-31); Chloride 104 mmol/L (98-107); Estimated GFR-MDRD Greater than 90; Glucose 124 mg/dL (80-115); Magnesium 2.2 mg/dL (1.6-2.6); Potassium 4.5 mmol/L (3.5-5.1); Sodium 139 mmol/L (136-145)
[2019-12-30] MEDS: ALPRAZolam 0.5 MG TAB PO PRN (05:17)
[2019-12-30 08:17] VITALS: BP 146/94; TEMP 96.7
[2019-12-30] MEDS: Chlorthalidone 25 MG TAB PO SCH (08:20)
[2019-12-30] MEDS: hydrALAZINE 25 MG TAB PO SCH (08:23)
[2019-12-30] MEDS: Amlodipine 10 MG TAB PO SCH (08:23)
[2019-12-30] MEDS: Enoxaparin Sodium 40 MG/0.4 ML SYRINGE SC SCH (08:24)
[2019-12-30] MEDS ORDERED: Sulfameth/Trimethoprim DS 800-160mg TAB PO SCH (09:00)
[2019-12-30] MEDS ORDERED: Furosemide 20 MG TAB PO SCH (09:00)
[2019-12-30] MEDS: Pyridostigmine Bromide 180 MG SRTAB PO SCH (10:09)
--- NOTE | 2019-12-30 11:34 | EKG ---
Test Reason : C/P Blood Pressure : / mmHG Vent. Rate : 085 BPM Atrial Rate : 085 BPM P-R Int : 130 ms QRS Dur : 082 ms QT Int : 368 ms P-R-T Axes : 059 038 067 degrees QTc Int : 437 ms Normal sinus rhythm Normal ECG When compared with ECG of 25-DEC-2019 18:34, Nonspecific T wave abnormality no longer evident in Lateral leads Confirmed by LOULOU SCHERER, . SBart (4) on 12/30/2019 11:33:39 AM Referred By: LESA Confirmed By:DR. Florence JAMIL MD
--- NOTE | 2019-12-30 14:19 | PQF ---
CLINICAL DOCUMENTATION IMPROVEMENT CLARIFICATION FORM: ICD-10 Updated PLEASE DO AN ADDENDUM TO THE PROGRESS NOTE WITH ANY DOCUMENTATION UPDATES OR ADDITIONS AND CARRY THROUGH TO DC SUMMARY. THANK YOU. DATE: 12/30/2019 ATTN: Dr. Benavides Please exercise your independent, professional judgment in responding to the clarification form. Clinical indicators are provided on the bottom of this form for your review Please check appropriate box(s) to clarify if the following diagnosis has been ruled in or ruled out: SEPSIS [ ] Ruled in diagnosis [ ] Continue to treat [ ] Resolved [ ] Ruled out diagnosis [ ] Improving [ ] Cannot rule out diagnosis [ ] Other diagnosis [ ] Unable to determine In addition, please specify: Present on Admission (POA): [ ] Yes [ ] No [ ] Unable to determine For continuity of documentation, please document condition throughout progress notes and discharge summary. Thank You. CLINICAL INDICATORS - SIGNS / SYMPTOMS / LABS / RESULTS AND LOCATION IN MR ER RECORD 12/24: VS: BP 159/67 Pulse 119, Resp 21. Temp. 100.6 Diagnosis: Sepsis - unspecified. Abscess - leg, Fever, Malignant neoplasm, Sacral fracture H&P 12/24: Lab Results: WBC's of 30.4 A/P: Leukocytosis, again is most likely secondary to her sepsis vs underlying newly diagnosed cancer 12/27 (Kennedy) MRSA left inguinal abscess diffuse metastatic disease RISKS: H&P 12/24: hx of diabetes , myasthenia gravis, HTN, liver cirrhosis. 12/26 (Collette) Left groin abscess and right inguinal lymphadenopathy TREATMENT: 12/27 POD 1: incision and drainage of a large left groin abscess, excision of large malignant r inguinal lymph node. MAR: Order 12/26: Vancomycin HCL 2 gm IV 0100, 1300 pn 12/28: stop vanc (d4) start bactrim DS PO bid for total of 14 days. Thank you, Joyce (This form is maintained as a part of the permanent medical record) 2014 [employer] All Rights Reserved Joyce Loya RN, BSN [email or web address] Office: [phone] [facility]
[2019-12-30] MEDS ORDERED: Melatonin 3 MG TAB PO SCH (21:00)
--- NOTE | 2019-12-31 14:23 | DIS ---
DATE OF ADMISSION: 12/25/2019 DATE OF DISCHARGE: 12/30/2019 This discharge summary has been dictated before. Please try to find previous dictation, otherwise used this dictation. HOSPITAL COURSE: Ms. Narvaez is a 64-year-old female with a medical history of myasthenia gravis, who presented for a left groin pain. 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 1. Left groin MRSA abscess. The patient received antibiotics throughout her inpatient stay and improved. Surgery was also consulted and did an I and D of the wound as well as packing. The patient's family was educated regarding continued packing and treatment of the wound, and home health was sent to aid the patient as well. The patient was discharged on Bactrim Double Strength for a total of 14 days. 2. Metastatic small cell carcinoma. The patient presented with diffuse lymphadenopathy, and imaging studies were consistent of metastatic disease. Oncology was consulted to establish care with the patient. The patient will continue to be followed up by Oncology as an outpatient. On the day of discharge, the patient was hemodynamically stable and complained only of mild left groin pain. PHYSICAL EXAMINATION: GENERAL: She was awake and alert, in no apparent distress, but tearful. HEART: No murmurs. No gallops. No rubs. Normal peripheral pulses. Regular rhythm, mildly tachycardic. RESPIRATORY: Clear to auscultation bilaterally. No wheezes, no rales, no rhonchi. Normal chest expansion. No tachypnea. GI: Soft, nontender, nondistended. Normal bowel sounds. EXTREMITIES: Bilateral lower extremity edema up to knee level. SKIN: Left inguinal abscess is packed, clean overlying dressing, the patient has diffuse lymphadenopathy including left periauricular, submandibular, and inguinal. PSYCHIATRIC: Tearful. Normal behavior. Alert and oriented x3. Job ID: [id number]
--- NOTE | 2020-01-01 11:12 | PQF ---
LUIS LARA MICHAEL W MD [id number] CLINICAL DOCUMENTATION CLARIFICATION FORM: POST DISCHARGE Addendum to original discharge summary date: ____ Late entry note date: __ DATE:01/01/2020 ATTN:DAMIR RADFORD MD Please exercise your independent, professional judgment in responding to the clarification form. Clinical indicators are provided on the bottom of this form for your review Please check appropriate box(s): [ x ] Excisional Debridement: [x ] Excised [ ] Cut away [ ] Other: Depth / layer: (deepest layer of debridement): [ ] Skin[ x ] SubQ Tissue [ ] Fascia [ ] Muscle [ ] Tendon [ ] Bone Appearance of wound: (e.g., down to fresh bleeding tissue, etc.) Margins: (please specify): 7____ / x __3___ x __2 cm___ Instruments used: [ ] Scissors [ ] Scalpel [ ] Curette [ ] Soft tissue clipper [ ] Other: [ ] Non-excisional Debridement: (Removal by flushing, brushing, chemical, or washing) Depth / layer: (deepest layer of debridement): [ ] Skin[ ] Subcutaneous [ ] Fascia [ ] Muscle [ ] Tendon [ ] Bone [ ] Other procedure diagnosis [ ] Unable to determine For continuity of documentation, please document condition throughout progress notes and discharge summary. Thank You. CLINICAL INDICATORS - SIGNS / SYMPTOMS / LABS Left groin abscess and right inguinal lymphadenopathy-Documented in OP note on 12/26 by Damir Radford MD Attention turned to left groin. The necrotic area overlying the abscess was excised. Underlying this was soupy necrotic material which was also excised. This incision was contiguous than with the lateral incision previously made. there was also found to be an undermined area extending superiorly and laterally. The skin over this was removed as well . When all tracts have been opened, the wound was debrided with gauze as well as sharp debridement with a scalpel.-Documented in OP note on 12/26 by Damir Radford MD [employer]K [employer]ORS When all tracts have been opened, the wound was debrided with gauze as well as sharp debridement with a scalpel.-Documented in OP note on 12/26 by Damir Radford MD TREATMENTS: It was scrubbed with peroxide and packed with peroxide moistened gauze dress was placed externally -Documented in OP note on 12/26 by Damir Radford MD [employer] (This form is maintained as a part of the permanent medical record) 2014 [employer] [place]. All Rights Reserved Juan [email or web address]
[2020-01-05 14:13] LABS: Albumin-Ur 62.9 % (.); Alpha 1 - Ur 5.2 % (.); Alpha 2 - Ur 6.1 % (.); Beta-Ur 7.2 % (.); Gamma-Ur 18.6 % (.); M-Spike,% Not Observed % (Not Observed); Protein, Urine 34.6 mg/dL (Not Estab.)
== END 2019-12-30 10:20 | disposition home or self-care (01) | DRG 824 ==
LOC: ERS 18:23 → ERHOLD 23:51 → 2NO 12-26 06:02
PROVIDERS: ADMIT Internal Medicine; ATTEND Internal Medicine
PROC: 07BH0ZX Excision of Right Inguinal Lymphatic, Open Approach, Diagnostic (ICD-10-PCS; principal; 2019-12-27)
PROC: 0JBB0ZZ Excision of Perineum Subcutaneous Tissue and Fascia, Open Approach (ICD-10-PCS; 2019-12-27)
DX: C77.4 Secondary and unspecified malignant neoplasm of inguinal and lower limb lymph nodes (principal); L02.214 Cutaneous abscess of groin; M84.48XA Pathological fracture, other site, initial encounter for fracture; Z68.41 Body mass index [BMI] 40.0-44.9, adult; R78.81 Bacteremia; L03.314 Cellulitis of groin; R59.1 Generalized enlarged lymph nodes; F90.9 Attention-deficit hyperactivity disorder, unspecified type; K74.60 Unspecified cirrhosis of liver; F17.210 Nicotine dependence, cigarettes, uncomplicated; E11.9 Type 2 diabetes mellitus without complications; C80.1 Malignant (primary) neoplasm, unspecified; I10 Essential (primary) hypertension; Z96.652 Presence of left artificial knee joint; E66.01 Morbid (severe) obesity due to excess calories; B95.62 Methicillin resistant Staphylococcus aureus infection as the cause of diseases classified elsewhere; Z90.710 Acquired absence of both cervix and uterus; Z88.0 Allergy status to penicillin; Z80.3 Family history of malignant neoplasm of breast
CPT/HCPCS: 10060; 36415; 36416; 71045; 71260; 72193; 74177; 80048; 80053; 80202; 81003; 81015; 82105; 83605; 83615; 83735; 83880; 83883; 84100; 84165; 84166; 85014; 85018; 85025; 85027; 87040; 87070; 87077; 87086; 87186; 87205; 88307; 88341; 88342; 88360; 93005; 93010; 93306; 93970; 96361; 96365; 96366; 96367; 96375; J0692; J0696; J1170; J1650; J1885; J2001; J2060; J2270; J2405; J2704; J3010; J3370; J3490; J7050; S0020

== ENCOUNTER 2020-01-07 16:42 | Outpatient (CLI) | payer OTHER ==
[2020-01-07 17:32] LABS: #Basophils 0.2 thou/uL (0.0-0.2); #Eosinphils 0.1 thou/uL (0.0-0.7); #Monocytes 1.3 thou/uL (0.11-0.59); #Neutrophils 14.3 thou/uL (1.40-6.50); %Basophils 0.8 % (0.0-1.0); %Eosinophils 0.6 % (0.0-10.0); %Lymphocytes 15.9 % (21.0-51.0); %Monocytes 6.8 % (0.0-10.0); %Neutrophils 75.9 % (42.0-75.0); Hemoglobin 10.3 g/dL (12.0-16.0); Mean Corpuscular HGB CONC 32.6 g/dL (32.0-36.0); Mean Corpuscular Hemoglobin 28.8 pg (27.0-31.0); Mean Corpuscular Volume 88.4 fL (78.0-98.0); Mean Platelet Volume 6.3 fL (7.4-10.4); Platelet Count 848 thou/uL (130-400); RBC Distribution Width 13.4 % (11.5-14.5); White Blood Cell (WBC) Count 18.8 thou/uL (4.8-10.8)
[2020-01-07 17:49] LABS: Anion Gap 11 mmol/L (10-20); BUN (Urea Nitrogen) 15 mg/dL (9.8-20.1); Calc. Creatinine Clearance 0 mL/min (70-130); Calcium 9.3 mg/dL (7.8-10.44); Carbon Dioxide 24 mmol/L (23-31); Chloride 100 mmol/L (98-107); Estimated GFR-MDRD 75; Glucose 66 mg/dL (80-115); Potassium 4.6 mmol/L (3.5-5.1); Sodium 130 mmol/L (136-145)
== END 2020-01-07 16:43 | disposition home or self-care (01) ==
LOC: LABBT 16:42
PROVIDERS: ATTEND Specialist
DX: Z01.812 Encounter for preprocedural laboratory examination (principal); C80.1 Malignant (primary) neoplasm, unspecified
CPT/HCPCS: 80048; 85025

== ENCOUNTER 2020-01-13 08:11 | Day surgery (SDC) | payer OTHER ==
[2020-01-07 16:52] VITALS: BMI 37.6
[2020-01-13] MEDS ORDERED: Bupivacaine 0.25% HCL 30 ML VIAL ONE (08:20)
[2020-01-13] MEDS ORDERED: Lidocaine 1% w/Epinephrine 1:100K 20 ML VIAL ONE (08:20)
[2020-01-13] MEDS ORDERED: Ketorolac Tromethamine 30 MG/ML VIAL ONE (08:23)
[2020-01-13] MEDS ORDERED: Acetaminophen 500 MG TAB ONE (08:24)
[2020-01-13] MEDS ORDERED: Levofloxacin 500 mg/D5W 100 ml Premix Bag ONE (08:24)
[2020-01-13] MEDS ORDERED: Propofol 500 MG/50 ML VIAL ONE (09:07)
[2020-01-13] MEDS ORDERED: Fentanyl 100 MCG/2 ML VIAL ONE (09:07)
[2020-01-13] MEDS ORDERED: Midazolam HCl 2 mg/2 ml Vial ONE (09:07)
[2020-01-13] MEDS ORDERED: HYDROcodone/Acetaminophen 5/325 mg Tablet ONE (11:47)
--- NOTE | 2020-01-13 11:57 | RAD ---
PORTABLE CHEST: HISTORY: MediPort placement. COMPARISON: 12/25/2019. FINDINGS: MediPort catheter has been placed via the right subclavian vein. The line overlies the SVC and appea rs adequately positioned. Lungs show no focal infiltrate. Heart and mediastinum unremarkable. Prominent hilar regions appear stable. No acute interval change. IMPRESSION: MediPort catheter appears adequately positioned. POS: [facility]
--- NOTE | 2020-01-13 12:04 | OP ---
DATE OF PROCEDURE: 01/13/2020 PREOPERATIVE DIAGNOSIS: Metastatic cancer with metastatic disease to lymph nodes and bones. POSTOPERATIVE DIAGNOSIS: Metastatic cancer with metastatic disease to lymph nodes and bones. PROCEDURE PERFORMED: Placement of standard-size power compatible right subclavian MediPort. ANESTHESIA: Total intravenous anesthesia per Dr. Kush Dwyer, local anesthetic using a mixture of 0.25% Marcaine and 1% lidocaine with epinephrine. INDICATIONS: The patient is a 64-year-old obese white female. She was recently diagnosed with widely metastatic cancer of uncertain etiology. MediPort placement has been requested for chemotherapy administration. DESCRIPTION OF OPERATION: Informed consent was obtained. The patient was taken to the operating room where total intravenous anesthesia was obtained with the patient in supine position. Right malaika-clavicular area was prepped with ChloraPrep and draped in sterile fashion. Local anesthetic was infiltrated and a large-gauge needle was passed under the clavicle in the subclavian vein. Guidewire was passed through the needle and fluoroscopically confirmed to enter the superior vena cava. Additional local anesthetic was infiltrated and transverse incision was created based on needle insertion site. A subcutaneous pocket was dissected inferiorly. Introducer dilator was passed over the guidewire under fluoroscopic guidance. The guidewire and dilator were removed, and the catheter was passed through the introducer. The tip of the catheter was positioned at the atriocaval junction and the catheter was trimmed to the appropriate length and secured to the locking hub of the MediPort. The port was then placed in the subcutaneous pocket where it was secured to the pectoral fascia with 2 interrupted sutures of 3-0 Prolene. The incision was then closed in layers with 3-0 and 4-0 Monocryl. Additional local anesthetic was infiltrated. The port was cannulated with a English needle and it aspirated blood freely and was flushed with heparinized saline. Dermabond was placed externally on the skin incision. There were no complications. Blood loss was negligible. The patient tolerated the procedure well and was taken to recovery room in stable condition. FINDINGS: The patient is an obese woman, and I therefore placed a standard-sized port. Fluoroscopy was used throughout the procedure. It was placed uneventfully with no significant blood loss and certainly no complications. Postprocedure x-ray shows good placement of port. Job ID: [id number]
== END 2020-01-13 12:05 | disposition home or self-care (01) ==
LOC: SDC 08:11
PROVIDERS: ATTEND Specialist
PROC: 02HV33Z Insertion of Infusion Device into Superior Vena Cava, Percutaneous Approach (ICD-10-PCS; principal; 2020-01-13)
DX: C80.1 Malignant (primary) neoplasm, unspecified (principal); C77.9 Secondary and unspecified malignant neoplasm of lymph node, unspecified; C79.51 Secondary malignant neoplasm of bone; I10 Essential (primary) hypertension; E10.9 Type 1 diabetes mellitus without complications; K21.9 Gastro-esophageal reflux disease without esophagitis; F17.210 Nicotine dependence, cigarettes, uncomplicated; Z79.899 Other long term (current) drug therapy; Z88.0 Allergy status to penicillin; Z91.040 Latex allergy status
CPT/HCPCS: 71045; 93005; 93010; J1642; J1885; J1956; J2250; J2704; J3010; S0020

== ENCOUNTER 2020-03-24 13:07 | Day surgery (SDC) | payer OTHER ==
[2020-03-24] MEDS ORDERED: diphenhydrAMINE 25 MG CAP PO SCH (14:15)
[2020-03-24] MEDS ORDERED: Acetaminophen 500 MG TAB PO SCH (14:15)
[2020-03-24 17:58] VITALS: TEMP 98.6
[2020-03-24 20:27] LABS: #Lymphocytes 1.4 thou/uL (1.20-3.40); #Monocytes 0.5 thou/uL (0.11-0.59); #Neutrophils 1.5 thou/uL (1.40-6.50); %Basophils 0.2 % (0.0-1.0); %Eosinophils 0.6 % (0.0-10.0); %Lymphocytes 42.1 % (21.0-51.0); %Monocytes 13.5 % (0.0-10.0); %Neutrophils 43.6 % (42.0-75.0); Mean Corpuscular HGB CONC 34.6 g/dL (32.0-36.0); Mean Corpuscular Hemoglobin 30.4 pg (27.0-31.0); Mean Corpuscular Volume 87.8 fL (78.0-98.0); Red Blood Cell (RBC) Count 2.96 mill/uL (4.20-5.40); White Blood Cell (WBC) Count 3.3 thou/uL (4.8-10.8)
[2020-03-24 20:45] VITALS: BP 143/65
[2020-03-24 21:11] LABS: Anisocytosis SLIGHT = 6-15 cells (100X) (0-5/hpf); MDiff Complete? YES; Mean Platelet Volume 8.3 fL (7.4-10.4); Platelet Count 84 thou/uL (130-400); Platelet Morphology Comment Appears Decreased
== END 2020-03-24 20:27 | disposition home or self-care (01) ==
LOC: ONC/OP 13:07 → ONC 13:08 → ONC/OP 20:27
PROVIDERS: ATTEND Internal Medicine Hematology & Oncology
PROC: 30233N1 Transfusion of Nonautologous Red Blood Cells into Peripheral Vein, Percutaneous Approach (ICD-10-PCS; principal; 2020-03-24)
DX: D64.9 Anemia, unspecified (principal); D69.6 Thrombocytopenia, unspecified; Z88.0 Allergy status to penicillin; Z91.040 Latex allergy status
CPT/HCPCS: 36430; 85025; 86850; 86900; 86901; J1642; P9016; Q0163

== ENCOUNTER 2020-04-22 12:29 | Outpatient (CLI) | payer OTHER ==
--- NOTE | 2020-04-22 14:12 | CT ---
CT CHEST, ABDOMEN AND PELVIS WITH IV CONTRAST: 04/22/20 Oral contrast was administered. Multiplanar reconstruction. INDICATIONS: Lung cancer with metastatic disease. Comparison made to recent CT chest, abdomen and pelvis dated 12/26/19. CT CHEST: There has been significant regression of the mediastinal adenopathy when compared to 12/26/19. Small paratracheal lymph nodes now measures approximately 1.0 cm. Also regression of the axillary merly nopathy noted previously. There are now some residual nonspecific axillary lymph nodes. The lung urbina are clear. No infiltrate or mass. No effusion. Bony thorax appears unremarkable. IMPRESSION: Significant regression of the mediastinal, hilar and axillary adenopathy when compared to 12/26/19. CT ABDOMEN AND PELVIS: Liver, spleen and pancreas appear unremarkable. Stomach and duodenum unremarkable. The large mass arising from the right adrenal gland extending into the right suprarenal region descri bed previously has significantly decreased in size. This mass is now measured at approximately 6.5 cm total craniocaudal in the coronal plane by 2.5 cm width. Previous coronal measurements were recorded at approximately 13 cm x 8 cm. The nodular mass involving the left adrenal gland does not appear significantly changed. The large lymph node in the hepatogastric region noted on the prior exam has regressed. Nonspecific h epatogastric and precrural lymph nodes are seen today. The patient is post cholecystectomy. Prominent common bile duct is stable. Small bowel loops appear normal. Colon unremarkable. Aorta normal caliber. The kidneys appear unremarkable and unchanged. Renal calcifications on the right are again noted. No hydronephrosis. Images through the pelvis show unremarkable urinary bladder. There also has been regression of the mass density involving the left sacrum when compared to prior s tudy. The compression deformity with sclerosis involving the L3 vertebra noted previously is again se en. The other vertebral bodies otherwise maintain height and exhibit normal density. Degenerative dis c changes are again noted at L3-4 and L4-5. There is abnormal mottle sclerosis now seen involving the right sacrum and the right ileum. There is evidence of a pathologic fracture through the right sacrum and right ileum with areas of mottled luce ncy and sclerosis indicating metastatic involvement. This probably explains the patient's current com plains of back pain. The large lymph node in the right inguinal region noted previously has also decreased in size and now only measures approximately 1.5 cm. The large lymph nodes in the left inguinal region have also sign ificantly regressed in size with residual adenopathy in the left groin measuring in the 2.0 cm range. IMPRESSION: 1. Regression of the upper abdominal adenopathy when compared to prior exam. There has been sign ificant regression of the large right adrenal mass when compared to prior study with current measurem ents given above. The left adrenal mass remains stable. 2. Evidence of regression of the left sacral soft tissue mass when compared to the prior exam. 3. However, on today's exam there is increased sclerosis and mottled lucency involving the right sacrum and right ileum. There is a pathologic fracture involving the right sacrum and right ileum. 4. The sclerosis and compression deformity involving the L3 vertebra is again noted. 5. Findings regarding the pathologic fracture is relayed to Dr. Hurd by phone at time of dic tation. POS: SOMMER
== END 2020-04-22 12:30 | disposition home or self-care (01) ==
LOC: BICCT 12:29
PROVIDERS: ATTEND Internal Medicine Hematology & Oncology
DX: C34.80 Malignant neoplasm of overlapping sites of unspecified bronchus and lung (principal); M89.9 Disorder of bone, unspecified; M43.8X6 Other specified deforming dorsopathies, lumbar region; E27.8 Other specified disorders of adrenal gland; R93.7 Abnormal findings on diagnostic imaging of other parts of musculoskeletal system
CPT/HCPCS: 71260; 74177

== ENCOUNTER 2020-05-17 10:07 | Outpatient (CLI) | payer OTHER ==
--- NOTE | 2020-05-17 15:09 | NM ---
NUCLEAR MEDICINE BONE SCAN WHOLE BODY: (Skeletal scintigraphy) DATE: 05/17/2020 HISTORY: 65-year-old female with metastatic lung cancer. "Evaluate pathologic fracture of right sacrum and right ilium" "malignant neoplasm of overlapping sites of unspecified bronchus" TECHNIQUE: IV injection of technetium 99m-MDP: 31.8 mCi 3 hour delayed whole body skeletal scintigraphy in anterior and posterior views. FINDINGS: There is heterogeneously increased uptake at the right sacral ala and involving and adjacent medial p ortion of right ilium. These correspond to the pathologic fractures demonstrated on the CT of 04/22/2020. It is noted that on that CT, linear fracture lucency persists in the right ilium and right sacral ala, in addition to the surrounding sclerotic changes. Additional tiny foci of mildly increased uptake at mid sacral body at midline, medial aspect of left mid-lower sacral ala, and right supra-acetabular ilium, all corresponding to sclerotic lesions on the CT, some subtle. The one in the right supra-acetabular region is associated with nonhealed linear fracture lucency. One of the mid-lower lumbar vertebral bodies demonstrate loss of height and diffuse sclerosis on that CT, but the uptake on the bone scan there is only minimally increased. Increased uptake at the bilateral major joints, especially ankles, consistent with degenerative mccormick es. Photopenic defect at left knee represents hardware. No other suspicious foci of increased uptake.. IMPRESSION: 1) increased uptake corresponding to the bilateral pathologic pelvic fractures. The largest of these involves the right sacral ala. 2) status post left knee arthroplasty.
== END 2020-05-17 10:08 | disposition home or self-care (01) ==
LOC: NM 10:07
PROVIDERS: ATTEND Internal Medicine Hematology & Oncology
DX: M84.48XD Pathological fracture, other site, subsequent encounter for fracture with routine healing (principal); M84.454D Pathological fracture, pelvis, subsequent encounter for fracture with routine healing; C34.80 Malignant neoplasm of overlapping sites of unspecified bronchus and lung; Z96.652 Presence of left artificial knee joint
CPT/HCPCS: 78306; A9503

== ENCOUNTER 2020-08-19 09:18 | Outpatient (CLI) | payer OTHER ==
--- NOTE | 2020-08-19 10:43 | CT ---
CT of the chest, abdomen, and pelvis: 08/19/2020 COMPARISON: 04/22/2020 HISTORY: Lung cancer TECHNIQUE: Axial CT imaging at 5 mm intervals from the thoracic inlet through the pubic symphysis wit h intravenous and oral contrast. Coronal and sagittal reformatted imaging obtained. FINDINGS: The superior aspect of this examination includes the tongue and supraglottic airway which a re poorly assessed secondary to positioning. A right-sided Port-A-Cath is in place. No axillary lymphadenopathy. There are no enlarged lymph nodes in the hilum or mediastinum. No pleural, pericardial, or mediastinal fluid. No pneumothorax. There is no discrete/dominant pulmonary parenchymal mass lesion or nodule noted within either lung. The osseous structures of the chest demonstrate degenerative change of the glenohumeral joints, left greater than right. No worrisome lytic or blastic bone lesion is noted within the chest. No free intraperitoneal air or fluid is noted. No focal liver lesion is evident. Cholecystectomy clips are present. The spleen, pancreas, and left k idney appear grossly unremarkable. There are areas of cortical thinning involving the superior posterior aspect of the left kidney. Ther e is a small mass anterior to the upper pole of the right kidney measuring 1.2 cm in AP dimension, decreased from the 04/22/2020 exam at which time it measured 3 cm in AP dimension, and markedly decreas ed when compared to the 12/26/2019 exam. This is in continuity with a nodular right adrenal gland which demonstrates masslike thickening measuring up to 1.3 cm, markedly decreased when compared to pr ior study performed 12/26/2019 at which time this lesion measured 3.9 cm. There is multifocal nodularity of the left adrenal gland with a anterior left adrenal mass measuring 1.3 cm in transverse dimension, decreased from 1.8 cm on the 12/26/2019 examination. Nonobstructing subcentimeter renal calculi are again noted on the right. The uterus appears surgically absent. There is diverticulosis of the sigmoid colon with no evidence for diverticulitis. No evidence for obs truction of the large or small bowel noted. There are a few subcentimeter lymph nodes in the gastrohepatic ligament. No lymphadenopathy is noted in the gastrohepatic ligament region or the ramírez hepatis. There is a node anterior to the IVC measuring 1.1 cm in AP dimension, decreased from 2.9 cm on the 12/26/2019 exam. Additional enlarged ly mph nodes on the 12/26/2019 exam within the ramírez hepatis are no longer present. No enlarged retroperitoneal lymph nodes are seen. Mildly prominent inguinal lymph nodes are noted on the left, improved when compared to the 04/22/2020 examination. Review of the osseous structures of the abdomen/pelvis demonstrate mild heterogeneity involving the m arrow density within the sacrum, improved when compared to studies dating back to 12/26/2019 where osseous metastatic disease was noted within the sacrum. There is osseous remodeling of the right sacr al ala and the adjacent right iliac wing which may be on the basis of treated metastatic disease and/or healing insufficiency fractures. No new lytic or blastic bone lesion is evident within the abd omen/pelvis. There is a inferior endplate fracture of the L3 vertebral body, which appears stable when compared to multiple prior examinations. IMPRESSION: No discrete lymphadenopathy is seen within the chest, abdomen, and pelvis, similar when c ompared to the 04/22/2020 examination and markedly improved when compared to 12/26/2019. Improving bilateral adrenal lesions consistent with treated metastatic disease. Findings suggesting treated oss eous metastatic disease as well. No new lesions are seen. Continued follow-up advised.
== END 2020-08-19 09:19 | disposition home or self-care (01) ==
LOC: BICCT 09:18
PROVIDERS: ATTEND Internal Medicine Hematology & Oncology
DX: C34.80 Malignant neoplasm of overlapping sites of unspecified bronchus and lung (principal); E27.8 Other specified disorders of adrenal gland
CPT/HCPCS: 71260; 74177

== ENCOUNTER 2020-12-10 10:45 | Outpatient (CLI) | payer OTHER ==
[2020-12-10] MEDS ORDERED: Iopamidol-370 76% 500 ML 1 ML ONE (11:52)
--- NOTE | 2020-12-10 14:21 | CT ---
CT of the chest, abdomen, and pelvis: 12/10/2020 COMPARISON: 08/19/2020 HISTORY: Metastatic small cell carcinoma TECHNIQUE: Axial CT imaging at 5 mm intervals obtained from the thoracic inlet through the pubic symp hysis with intravenous and oral contrast. Coronal and sagittal reformatted imaging FINDINGS: Stable right-sided Port-A-Cath. There is a new enlarged lymph node in the right axilla with relative central vague hypodensity which could signify necrosis. This node measures 2.4 cm in greatest dimension. No left axillary adenopathy. No mediastinal or hilar adenopathy noted. No pleural, pericardial, or mediastinal fluid. The lung parenchyma demonstrates no acute findings. No endobronchial lesion is noted. Osseous structures of the chest demonstrates degenerative change and bilateral shoulders, right great er than left. No worrisome lytic or blastic bone lesions are noted within the chest. There is no free intraperitoneal air or fluid. Gallbladder appears surgically absent. Liver, spleen, pancreas, and left kidney appear unremarkable. The left adrenal gland demonstrates a stable anterior nodule measuring 1.3 cm in transverse dimension , not significantly changed. The right adrenal gland is thickened as well, measuring 1.2 cm in transverse dimension, stable. There is a subcentimeter stable nonobstructing stone in the lower pole of the right kidney. Multiple foci of renal cortical thinning are noted. The uterus is surgically absent. There is diverticulosis of the sigmoid colon without evidence for di verticulitis. No evidence for bowel inflammatory change. There is no evidence for large or small bowel obstruction. There is mild prominence of proximal small bowel loops with no transition point to suggest bowel obstruction. There is a stable nonspecific subcentimeter node in the superior aspect of the gastrohepatic ligament . There is a stable ramírez hepatis node anterior to the IVC measuring 1.2 cm. Subcentimeter retroperitoneal nodes are noted, unchanged. No discrete pelvic adenopathy/inguinal adenopathy. The vascular structures demonstrate scattered atherosclerotic calcification of the infrarenal abdomin al aorta. Osseous structures of the abdomen/pelvis demonstrate sclerotic changes within the right iliac bone posteriorly/medially which could be on the basis of treated metastatic disease. There is s ubtle irregularity involving the right sacral ala as well, which also may represent treated metastatic disease. There is an inferior endplate fracture with moderate central loss of vertebral body height at L3. IMPRESSION: New enlarged right axillary lymph node with central hypodensity suspicious for a metastat ic necrotic node. Otherwise, no significant interval change. The new suspicious right axillary lymph node concerning for interval progression of disease appears a menable to ultrasound-guided biopsy.
--- NOTE | 2020-12-10 15:32 | RAD ---
RIGHT HAND 3 VIEWS: INDICATION: History of right hand pain. COMPARISON: None. FINDINGS: There is scattered osteoarthrosis of the right hand. There is diffuse osteopenia. There is moderate 1st CMC osteoarthrosis. No radiopaque foreign body is noted. IMPRESSION: No acute osseous abnormality. POS: BH
== END 2020-12-10 10:46 | disposition home or self-care (01) ==
LOC: BICCT 10:45
PROVIDERS: ATTEND Internal Medicine Hematology & Oncology
DX: C34.90 Malignant neoplasm of unspecified part of unspecified bronchus or lung (principal); C79.9 Secondary malignant neoplasm of unspecified site; R22.31 Localized swelling, mass and lump, right upper limb
CPT/HCPCS: 71260; 74177; Q9967

== ENCOUNTER 2021-04-05 10:35 | Outpatient (CLI) | payer OTHER | END 2021-04-05 10:36 | disposition home or self-care (01) | LOC: PET 10:35 | PROVIDERS: ATTEND Internal Medicine Hematology & Oncology | DX: C34.90 Malignant neoplasm of unspecified part of unspecified bronchus or lung (principal) | CPT/HCPCS: 78815; A9552 ==

== ENCOUNTER 2021-07-21 11:20 | Outpatient (CLI) | payer OTHER | END 2021-07-21 11:21 | disposition home or self-care (01) | LOC: PET 11:20 | PROVIDERS: ATTEND Internal Medicine Hematology & Oncology | DX: C34.80 Malignant neoplasm of overlapping sites of unspecified bronchus and lung (principal); R59.0 Localized enlarged lymph nodes | CPT/HCPCS: 78815; A9552 ==

== ENCOUNTER 2022-06-13 11:45 | Outpatient (CLI) | payer BC | END 2022-06-13 11:46 | disposition home or self-care (01) | LOC: PET 11:45 | PROVIDERS: ATTEND Internal Medicine Hematology & Oncology | DX: C34.80 Malignant neoplasm of overlapping sites of unspecified bronchus and lung (principal) | CPT/HCPCS: 78815; A9552 ==

== ENCOUNTER 2022-12-12 11:45 | Outpatient (CLI) | payer BC | END 2022-12-12 11:46 | disposition home or self-care (01) | LOC: PET 11:45 | PROVIDERS: ATTEND Internal Medicine Hematology & Oncology | DX: C34.80 Malignant neoplasm of overlapping sites of unspecified bronchus and lung (principal) | CPT/HCPCS: 78815; A9552 ==

== ENCOUNTER 2023-05-18 10:15 | Outpatient (CLI) | payer BC | END 2023-05-18 10:16 | disposition home or self-care (01) | LOC: PET 10:15 | PROVIDERS: ATTEND Internal Medicine Hematology & Oncology | DX: C34.80 Malignant neoplasm of overlapping sites of unspecified bronchus and lung (principal) | CPT/HCPCS: 78815; A9552 ==

== ENCOUNTER 2023-11-15 11:45 | Outpatient (CLI) | payer BC | END 2023-11-15 11:46 | LOC: PET 11:45 | PROVIDERS: ATTEND Internal Medicine Hematology & Oncology | DX: C34.80 Malignant neoplasm of overlapping sites of unspecified bronchus and lung (principal); J18.1 Lobar pneumonia, unspecified organism; S22.061A Stable burst fracture of T7-T8 vertebra, initial encounter for closed fracture | CPT/HCPCS: 78815; A9552 ==

== ENCOUNTER 2024-03-12 20:48 | Inpatient (IN) | payer BC ==
[2024-03-12 22:31] LABS: Bilirubin Negative (Negative); Blood, Urine Negative (Negative); CAUTI Indications for Culture Pelvic or flank pain; Clarity Clear (Clear); Glucose, Urine (Dipstick) Normal (Negative); Ketone, Urine Negative (Negative); Leukocyte 75 Leu/uL (Negative); Nitrite Negative (Negative); Protein, Urine (Dipstick) 10 mg/dL (Neg-Trace); RBC/HPF 0-3 HPF (0-3); Specific Gravity, Urine 1.017 (1.002-1.036); Urobilinogen Normal mg/dL (Less than 2)
[2024-03-12 22:34] LABS: Bacteria/HPF 1+ HPF (None Seen)
[2024-03-12 22:35] LABS: Urine Culture Reflex Yes Yes
[2024-03-12] MEDS ORDERED: Ketorolac Tromethamine 30 MG (1 mL) VIAL ONE (22:39)
[2024-03-12] MEDS ORDERED: Morphine 4 MG/ML VIAL ONE (22:39)
[2024-03-12 22:52] LABS: #Basophils 0.04 10x3/uL (0.0-0.2); #Eosinphils Less than 0.03 10x3/uL (0.0-0.7); %Basophils 0.2 % (0.0-1.0); %Eosinophils 0.1 % (0.0-10.0); %Lymphocytes 5.7 % (21.0-51.0); %Monocytes 4.4 % (0.0-10.0); %Neutrophils 89.1 % (42.0-75.0); Hematocrit 40.4 % (36.0-47.0); Hemoglobin 13.6 g/dL (12.0-16.0); Mean Corpuscular HGB CONC 33.7 g/dL (32.0-36.0); Mean Corpuscular Hemoglobin 28.1 pg (27.0-31.0); Mean Corpuscular Volume 83.5 fL (78.0-98.0); Mean Platelet Volume 9.5 fL (7.4-10.4); Platelet Count 273 10x3/uL (130-400); RBC Distribution Width 14.2 % (11.5-14.5); Red Blood Cell (RBC) Count 4.84 mill/uL (4.20-5.40)
[2024-03-12 23:05] LABS: ALT (SGPT) 14 U/L (8-55); AST (SGOT) 25 U/L (5-34); Albumin 3.3 g/dL (3.4-4.8); Alkaline Phosphatase 232 U/L (40-110); Anion Gap 17 mmol/L (10-20); BUN (Urea Nitrogen) 16 mg/dL (9.8-20.1); Bilirubin, Total 0.4 mg/dL (0.2-1.2); Calc. Creatinine Clearance 0 mL/min (70-130); Calcium 9.9 mg/dL (7.8-10.44); Carbon Dioxide 27 mmol/L (23-31); Chloride 97 mmol/L (98-107); Estimated GFR 49; Globulin 4.5 g/dL (2.4-3.5); Glucose 130 mg/dL (80-115); Protein, Total 7.8 g/dL (5.8-8.1); Sodium 136 mmol/L (136-145)
[2024-03-12] MEDS ORDERED: Sodium Chloride 0.9% 100 ML ONE (23:58)
[2024-03-12] MEDS ORDERED: Piperacillin/Tazobactam 4.5 GM VIAL ONE (23:58)
[2024-03-13] MEDS ORDERED: Morphine 4 MG/ML VIAL ONE (00:28)
[2024-03-13] MEDS ORDERED: Acetaminophen 325 MG TAB PO PRN (00:45)
[2024-03-13] MEDS ORDERED: Ondansetron ODT 4 MG TAB SL PRN (00:45)
[2024-03-13] MEDS ORDERED: Ondansetron PF 4 MG/2 ML Vial IVP PRN (00:45)
[2024-03-13 01:12] VITALS: BMI 38.6
[2024-03-13] MEDS: Sodium Chloride 0.9% 1,000 ML IV SCH (01:55)
[2024-03-13] MEDS ORDERED: Ondansetron ODT 4 MG TAB PO PRN (02:59)
[2024-03-13] MEDS: ALPRAZolam 0.5 MG TAB PO PRN (03:10)
[2024-03-13] MEDS: HYDROcodone/Acetaminophen 5/325 mg Tablet PO PRN (05:54)
[2024-03-13 06:27] LABS: #Basophils 0.06 10x3/uL (0.0-0.2); %Basophils 0.2 % (0.0-1.0); %Eosinophils 0.1 % (0.0-10.0); %Lymphocytes 2.9 % (21.0-51.0); %Monocytes 3.5 % (0.0-10.0); %Neutrophils 92.9 % (42.0-75.0); Hematocrit 38.1 % (36.0-47.0); Hemoglobin 12.6 g/dL (12.0-16.0); Mean Corpuscular HGB CONC 33.1 g/dL (32.0-36.0); Mean Corpuscular Hemoglobin 28.1 pg (27.0-31.0); Mean Platelet Volume 9.9 fL (7.4-10.4); Platelet Count 251 10x3/uL (130-400); RBC Distribution Width 14.5 % (11.5-14.5); Red Blood Cell (RBC) Count 4.48 mill/uL (4.20-5.40)
[2024-03-13 06:38] LABS: Hemoglobin A1c 6.6 % (4.0-6.0)
[2024-03-13 06:47] LABS: Anion Gap 14 mmol/L (10-20); BUN (Urea Nitrogen) 16 mg/dL (9.8-20.1); Calc. Creatinine Clearance 65 mL/min (70-130); Calcium 8.9 mg/dL (7.8-10.44); Carbon Dioxide 26 mmol/L (23-31); Chloride 101 mmol/L (98-107); Estimated GFR 46; Glucose 50 mg/dL (80-115); Potassium 4.6 mmol/L (3.5-5.1); Sodium 136 mmol/L (136-145)
[2024-03-13] MEDS: Famotidine 20 MG TAB PO SCH (09:06)
[2024-03-13] MEDS: cefTRIAXone\\ROCEPHIN 1 GM in Sodium Chloride 0.9% 100 ML IVPB SCH (09:06)
[2024-03-13] MEDS: Amlodipine 10 MG TAB PO SCH (09:06)
[2024-03-13] MEDS: Famotidine/PF 20 mg/2ml Vial SLOW IVP SCH (09:12)
[2024-03-13] MEDS ORDERED: Dextrose 50% Abboject 50 ML SYRINGE SLOW IVP PRN (09:14)
[2024-03-13] MEDS ORDERED: Glucagon 1 MG/ML KIT IM PRN (09:14)
[2024-03-13] MEDS ORDERED: Dextrose 5% in Water 1,000 ML IV PRN (09:14)
[2024-03-13] MEDS ORDERED: Dextrose 5 % And 0.9 % NaCl 1,000 ML IV SCH (09:15)
[2024-03-13] MEDS: LevoFLOXacin 500 mg/D5W 500 MG in Premix 1 BAG IVPB SCH (11:38)
[2024-03-13] MEDS: Dextrose 5%-Lactated Ringers 1,000 ML IV SCH (11:39)
[2024-03-13] MEDS ORDERED: Albuterol 2.5 MG (3 mL) NEB NEB PRN (12:57)
[2024-03-13] MEDS: Morphine IR Tab 15 MG TAB PO PRN (13:06)
[2024-03-13] MEDS: Morphine 4 MG/ML VIAL SLOW IVP PRN (13:17)
[2024-03-13] MEDS ORDERED: fentaNYL 50 mcg/mL 1 mL Vial ONE (17:41)
[2024-03-13] MEDS ORDERED: PROPOFOL 20 ML ONE (17:41)
[2024-03-13] MEDS ORDERED: Ondansetron PF 4 MG/2 ML Vial ONE ×2 (17:55→18:13)
[2024-03-13] MEDS ORDERED: Dexamethasone 4 mg/ml Vial ONE ×2 (17:55→18:13)
[2024-03-13] MEDS ORDERED: PACU-Morphine 4MG/ML VIAL SLOW IVP PRN (18:39)
[2024-03-13] MEDS ORDERED: HYDROmorphone 2 MG/ML VIAL SLOW IVP PRN (18:39)
[2024-03-13] MEDS ORDERED: Promethazine HCl 25 MG/ML VIAL IM PRN (18:39)
[2024-03-13] MEDS ORDERED: Ondansetron HCl/PF 4 MG/2 ML Vial IVP PRN (18:39)
[2024-03-13] MEDS ORDERED: Morphine Sulfate 2 MG/ML SYRINGE SLOW IVP PRN (18:39)
[2024-03-13] MEDS: Morphine ER 30 MG TAB PO SCH (20:35)
[2024-03-13] MEDS: Pyridostigmine Bromide 180 MG SRTAB PO SCH (20:35)
[2024-03-13] MEDS ORDERED: DEXTROAMP AMPHETAMIN PO SCH (21:00)
[2024-03-14] MEDS: Ondansetron PF 4 MG/2 ML Vial IVP PRN (05:20)
[2024-03-14] MEDS: HumaLOG 300 UNITS/3 ML VIAL SC PRN (05:35)
[2024-03-14 10:01] LABS: Hematocrit 35.6 % (36.0-47.0); Hemoglobin 11.5 g/dL (12.0-16.0); Mean Corpuscular HGB CONC 32.3 g/dL (32.0-36.0); Mean Corpuscular Hemoglobin 28.1 pg (27.0-31.0); Platelet Count 232 10x3/uL (130-400); RBC Distribution Width 14.9 % (11.5-14.5); Red Blood Cell (RBC) Count 4.09 mill/uL (4.20-5.40)
[2024-03-14 10:11] LABS: Anion Gap 15 mmol/L (10-20); BUN (Urea Nitrogen) 19 mg/dL (9.8-20.1); Calc. Creatinine Clearance 70 mL/min (70-130); Calcium 8.3 mg/dL (7.8-10.44); Carbon Dioxide 26 mmol/L (23-31); Chloride 101 mmol/L (98-107); Estimated GFR 50; Glucose 230 mg/dL (80-115); Potassium 4.6 mmol/L (3.5-5.1); Sodium 137 mmol/L (136-145)
[2024-03-14 10:34] LABS: Band 15 % (5-11); Lymphocytes 1 % (21-51); Monocytes 2 % (0-10); Neutrophil 82 % (42-75); Platelet Adequacy Comment Platelets Normal; RBC Morphology Within Normal Limits
[2024-03-14] MEDS: Acetaminophen 325 MG TAB PO PRN (10:50)
[2024-03-14] MEDS: glyBURIDE 5 MG TAB PO SCH (16:35)
[2024-03-14] MEDS: metFORMIN 500 MG TAB PO SCH (16:35)
[2024-03-15] MEDS: diphenhydrAMINE 50 MG/ML VIAL IVP SCH (05:04)
[2024-03-15 05:21] LABS: #Basophils 0.04 10x3/uL (0.0-0.2); %Basophils 0.2 % (0.0-1.0); %Eosinophils 0.6 % (0.0-10.0); %Lymphocytes 9.9 % (21.0-51.0); %Monocytes 5.4 % (0.0-10.0); %Neutrophils 82.8 % (42.0-75.0); Hematocrit 33.7 % (36.0-47.0); Hemoglobin 10.9 g/dL (12.0-16.0); Mean Corpuscular HGB CONC 32.3 g/dL (32.0-36.0); Mean Corpuscular Hemoglobin 28.6 pg (27.0-31.0); Mean Corpuscular Volume 88.5 fL (78.0-98.0); Mean Platelet Volume 9.6 fL (7.4-10.4); Platelet Count 226 10x3/uL (130-400); RBC Distribution Width 15.2 % (11.5-14.5); Red Blood Cell (RBC) Count 3.81 mill/uL (4.20-5.40)
[2024-03-15 05:59] LABS: Anion Gap 12 mmol/L (10-20); BUN (Urea Nitrogen) 20 mg/dL (9.8-20.1); Calc. Creatinine Clearance 102 mL/min (70-130); Calcium 8.8 mg/dL (7.8-10.44); Carbon Dioxide 26 mmol/L (23-31); Chloride 102 mmol/L (98-107); Estimated GFR 79; Glucose 112 mg/dL (80-115); Potassium 3.8 mmol/L (3.5-5.1); Sodium 136 mmol/L (136-145)
[2024-03-15 11:22] VITALS: BMI 38.6
[2024-03-15] MEDS: Vancomycin (BATCH) 2 GM in Premix 1 BAG IVPB SCH (11:49)
[2024-03-15] MEDS: Vancomycin (BATCH) 2.5 GM in Premix 1 BAG IVPB SCH (12:26)
[2024-03-15] MEDS: Calcium Carbonate 500 MG ChewTAB PO PRN (13:43)
[2024-03-15] MEDS: diphenhydrAMINE 25 MG CAP PO PRN (13:43)
[2024-03-15] MEDS: Cefepime 2 GM in Sodium Chloride 0.9% 100 ML IVPB SCH (20:18)
[2024-03-15] MEDS ORDERED: Vancomycin 1 GM in Sodium Chloride 0.9% 250 ML 250 ML IVPB SCH (21:00)
[2024-03-15] MEDS ORDERED: Vancomycin 1 GM in Premix 1 BAG IVPB SCH (23:59)
[2024-03-16] MEDS ORDERED: Vancomycin 1 GM in Premix 1 BAG IVPB SCH (01:00)
[2024-03-16 05:01] LABS: Vancomycin, Random 13.6 ug/mL (See Comment)
[2024-03-16 07:24] LABS: #Basophils 0.04 10x3/uL (0.0-0.2); %Basophils 0.3 % (0.0-1.0); %Lymphocytes 12.9 % (21.0-51.0); %Monocytes 9.3 % (0.0-10.0); %Neutrophils 74.6 % (42.0-75.0); Hematocrit 37.2 % (36.0-47.0); Hemoglobin 12.2 g/dL (12.0-16.0); Mean Corpuscular HGB CONC 32.8 g/dL (32.0-36.0); Mean Corpuscular Hemoglobin 28.5 pg (27.0-31.0); Mean Corpuscular Volume 86.9 fL (78.0-98.0); Mean Platelet Volume 9.7 fL (7.4-10.4); Platelet Count 256 10x3/uL (130-400); RBC Distribution Width 14.9 % (11.5-14.5); Red Blood Cell (RBC) Count 4.28 mill/uL (4.20-5.40)
[2024-03-16 07:42] LABS: Anion Gap 13 mmol/L (10-20); BUN (Urea Nitrogen) 17 mg/dL (9.8-20.1); Calc. Creatinine Clearance 112 mL/min (70-130); Calcium 9.7 mg/dL (7.8-10.44); Carbon Dioxide 27 mmol/L (23-31); Chloride 101 mmol/L (98-107); Estimated GFR 88; Glucose 86 mg/dL (80-115); Sodium 137 mmol/L (136-145)
[2024-03-16] MEDS: Cefepime 2 GM VIAL ONE (21:15)
[2024-03-18 04:30] LABS: Hemoglobin 11.6 g/dL (12.0-16.0); Mean Corpuscular HGB CONC 32.2 g/dL (32.0-36.0); Mean Corpuscular Hemoglobin 27.4 pg (27.0-31.0); Mean Corpuscular Volume 84.9 fL (78.0-98.0); Mean Platelet Volume 9.5 fL (7.4-10.4); Platelet Count 262 10x3/uL (130-400); RBC Distribution Width 15.1 % (11.5-14.5); Red Blood Cell (RBC) Count 4.24 mill/uL (4.20-5.40)
[2024-03-18 04:47] LABS: Anion Gap 13 mmol/L (10-20); BUN (Urea Nitrogen) 17 mg/dL (9.8-20.1); Calc. Creatinine Clearance 107 mL/min (70-130); Carbon Dioxide 27 mmol/L (23-31); Chloride 104 mmol/L (98-107); Estimated GFR 84; Glucose 107 mg/dL (80-115); Potassium 3.8 mmol/L (3.5-5.1); Sodium 140 mmol/L (136-145)
[2024-03-18 11:57] VITALS: BP 123/76; TEMP 97.6
[2024-03-22 18:37] LABS: CA Oxalate Dihydrate 10 % (.); CA Oxalate Monohydrate 80 % (.); Color Tan (.); Stone Weight 45 mg (.)
== END 2024-03-18 15:30 | disposition home or self-care (01) | DRG 854 ==
LOC: ERS 20:48 → SURG A 23:50 → OBSVTOIN 03-13 08:00
PROVIDERS: ADMIT Student in an Organized Health Care Education/Training Program; ATTEND Internal Medicine
PROC: 0TC68ZZ Extirpation of Matter from Right Ureter, Via Natural or Artificial Opening Endoscopic (ICD-10-PCS; principal; 2024-03-13)
PROC: 0T768DZ Dilation of Right Ureter with Intraluminal Device, Via Natural or Artificial Opening Endoscopic (ICD-10-PCS; 2024-03-13)
DX: A41.9 Sepsis, unspecified organism (principal); C34.90 Malignant neoplasm of unspecified part of unspecified bronchus or lung; N13.6 Pyonephrosis; N17.9 Acute kidney failure, unspecified; L03.115 Cellulitis of right lower limb; E11.9 Type 2 diabetes mellitus without complications; Z88.2 Allergy status to sulfonamides; Z91.040 Latex allergy status; Z88.0 Allergy status to penicillin; Z91.041 Radiographic dye allergy status; Z79.899 Other long term (current) drug therapy; Z79.84 Long term (current) use of oral hypoglycemic drugs; I10 Essential (primary) hypertension; Z90.710 Acquired absence of both cervix and uterus; Z98.890 Other specified postprocedural states; G89.4 Chronic pain syndrome; M19.90 Unspecified osteoarthritis, unspecified site; F22 Delusional disorders; I87.8 Other specified disorders of veins; N81.10 Cystocele, unspecified
CPT/HCPCS: 36415; 36416; 71045; 74176; 74420; 80048; 80053; 80202; 81001; 82365; 82565; 83036; 83880; 85025; 85027; 87040; 87086; 87328; 87329; 88300; 96365; 96375; 96376; 97139; C2617; G0378; J0692; J0696; J1100; J1200; J1642; J1815; J1885; J1956; J2270; J2405; J2543; J2704; J3010; J3370; J3490; J7050

== ENCOUNTER 2024-03-27 11:45 | Outpatient (CLI) | payer BC | END 2024-03-27 11:46 | disposition home or self-care (01) | LOC: PET 11:45 | PROVIDERS: ATTEND Internal Medicine Hematology & Oncology | DX: C34.80 Malignant neoplasm of overlapping sites of unspecified bronchus and lung (principal); K57.30 Diverticulosis of large intestine without perforation or abscess without bleeding; K63.0 Abscess of intestine; J18.9 Pneumonia, unspecified organism | CPT/HCPCS: 78815; A9552 ==

== ENCOUNTER 2024-09-18 09:30 | Outpatient (CLI) | payer BC | END 2024-09-18 09:31 | disposition home or self-care (01) | LOC: PET 09:30 | PROVIDERS: ATTEND Internal Medicine Hematology & Oncology | DX: C34.80 Malignant neoplasm of overlapping sites of unspecified bronchus and lung (principal); D50.8 Other iron deficiency anemias; K57.32 Diverticulitis of large intestine without perforation or abscess without bleeding | CPT/HCPCS: 78815; A9552 ==